=== PATIENT | male | born 1940 | race Caucasian/White ===

== ENCOUNTER 2017-03-15 17:19 | Inpatient (IN) | payer MEDICARE ==
[2017-03-15] MEDS ORDERED: HYDROcodone/Acetaminophen 7.5/325 mg Tablet PO PRN (19:10)
[2017-03-15] MEDS ORDERED: Acetaminophen 325 MG TAB PO PRN (19:12)
[2017-03-15] MEDS ORDERED: Bisacodyl 5 MG TAB PO PRN (19:12)
[2017-03-15] MEDS ORDERED: Ondansetron ODT 4 MG TAB PO PRN (19:12)
[2017-03-15] MEDS ORDERED: Milk Of Magnesia 30 ML UDCUP PO PRN (19:12)
[2017-03-15] MEDS ORDERED: Loperamide HCl 2 MG CAP PO PRN (19:12)
[2017-03-15] MEDS ORDERED: Vancomycin HCl 750 MG in Sodium Chloride 0.9% 250 ML 250 ML IVPB SCH (21:00)
[2017-03-15] MEDS: Guaifenesin DM 100-10/5 ML UDCUP PO PRN (21:17)
[2017-03-15] MEDS: Vancomycin HCl 125 MG Capsule PO SCH (21:17)
[2017-03-15] MEDS: Metoprolol Tartrate 50 MG TAB PO SCH (21:17)
[2017-03-15] MEDS ORDERED: Vancomycin HCl 500 MG in Sodium Chloride 0.9% 100 ML IVPB SCH (22:00)
[2017-03-16 05:24] LABS: #Basophils 0.1 thou/uL (0.0-0.2); #Eosinphils 0.1 thou/uL (0.0-0.7); #Lymphocytes 1.6 thou/uL (1.20-3.40); #Monocytes 1.8 thou/uL (0.11-0.59); #Neutrophils 10.9 thou/uL (1.40-6.50); %Basophils 0.7 % (0.0-1.0); %Eosinophils 0.5 % (0.0-10.0); %Lymphocytes 11.3 % (21.0-51.0); %Monocytes 12.1 % (0.0-10.0); %Neutrophils 75.4 % (42.0-75.0); Hemoglobin 15.3 g/dL (14.0-18.0); Mean Corpuscular HGB CONC 31.4 g/dL (32.0-36.0); Mean Corpuscular Hemoglobin 32.2 pg (27.0-31.0); Mean Platelet Volume 8.4 fL (7.4-10.4); Platelet Count 153 thou/uL (130-400); RBC Distribution Width 14.9 % (11.5-14.5); Red Blood Cell (RBC) Count 4.76 mill/uL (4.70-6.10); White Blood Cell (WBC) Count 14.5 thou/uL (4.8-10.8)
[2017-03-16] MEDS: Levothyroxine Sodium 25 MCG TAB PO SCH (05:24)
[2017-03-16 05:26] LABS: INR-International Normal Ratio 2.9; Prothrombin Time 31.8 SEC (12.0-14.7)
[2017-03-16 05:37] LABS: ALT (SGPT) 304 U/L (8-55); AST (SGOT) 181 U/L (5-34); Alkaline Phosphatase 110 U/L (40-150); Anion Gap 14 mmol/L (10-20); BUN (Urea Nitrogen) 52 mg/dL (8.4-25.7); Bilirubin, Total 2.1 mg/dL (0.2-1.2); Calc. Creatinine Clearance 32 mL/min (70-130); Calcium 8.9 mg/dL (7.8-10.44); Carbon Dioxide 28 mmol/L (23-31); Chloride 98 mmol/L (98-107); Estimated GFR-MDRD 38; Globulin 2.4 g/dL (2.4-3.5); Glucose 87 mg/dL (83-110); Potassium 4.4 mmol/L (3.5-5.1); Protein, Total 5.4 g/dL (5.8-8.1); Sodium 136 mmol/L (136-145)
[2017-03-16] MEDS: Cyanocobalamin (Vitamin B-12) 1,000 MCG TAB PO SCH (08:51)
[2017-03-16] MEDS: Furosemide 20 MG TAB PO SCH (08:51)
[2017-03-16] MEDS: Metoprolol Tartrate 50 MG TAB PO SCH ×2 (08:51→20:00)
[2017-03-16] MEDS: Famotidine 20 MG TAB PO SCH (08:51)
[2017-03-16] MEDS: Folic Acid 1 MG TAB PO SCH (08:51)
[2017-03-16] MEDS: Multivitamin W/ Minerals 1 TAB PO SCH (08:52)
[2017-03-16] MEDS: Saccharomyces boulardii 250 MG CAP PO SCH (08:52)
[2017-03-16] MEDS: Vancomycin HCl 125 MG Capsule PO SCH ×4 (08:53→20:00)
[2017-03-16] MEDS: Guaifenesin DM 100-10/5 ML UDCUP PO PRN (09:00)
--- NOTE | 2017-03-16 12:14 | HP ---
HISTORY OF PRESENT ILLNESS: Mr. Jimenez is a very pleasant 76-year-old white male that was admitted to [facility] with an osteomyelitis of the left index finger. He states he got that from cu tting a brisket and several weeks later became viciously infected. The patient was admitted to the hospital and started on vancomycin IV. He developed Clostridium diff icile and was started on oral vancomycin also. He has been stabilized and was transferred here for p hysical therapy, occupational therapy to increase his strength and his stamina. PAST MEDICAL HISTORY: 1. Congestive heart failure. 2. Chronic atrial fibrillation. 3. Chronic obstructive pulmonary disease. 4. Osteomyelitis of left index finger. 5. Hypothyroidism. 6. Hypertension. 7. Generalized weakness. PAST SURGICAL HISTORY: 1. Reveals the patient has had a revision and debridement of osteomyelitis of the left index finger. 2. Appendectomy. 3. Tonsillectomy 4. Ear and nose surgery. FAMILY HISTORY: Reveals patient has a family history of coronary artery disease. SOCIAL HISTORY: Reveals the patient does not smoke, but he quit smoking many years ago. He used to smoke cigars also. The patient does not use any alcohol or drugs. The patient lives in [place] and has a girlfriend for the last 30 years that lives with him. CURRENT MEDICATIONS: 1. Reveal the patient presently on vancomycin 1.25 grams IV daily. 2. Vancomycin 125 mg orally q.i.d. 3. Elcho 7.5 q.8h. p.r.n. pain. 4. DuoNebs q.6h. scheduled. 5. Aspirin 81 mg daily. 6. Vitamin B12 1000 mcg daily. 7. Pepcid 20 mg daily. 8. Folic acid 1 mg daily. 9. Lasix 20 mg each morning. 10. Robitussin-DM 1 tablespoon q.4h. p.r.n. 11. Theragran M one a day. 12. Levothyroxine 25 mcg daily. 13. Metoprolol 50 mg b.i.d. 14. Protonix 40 mg daily. 15. Florastor 250 mg daily. 16. Coumadin 3 mg each day. ALLERGIES: The patient is noted to be allergic to PENICILLIN. REVIEW OF SYSTEMS: GENERAL: The patient states he is doing very well. He denies any nausea, vomiting, fever or chills. He states he is very weak and that is his understanding why he got transferred to [facility] for physical therapy and occupational therapy. HEENT: The patient denies any ear, nose or throat problems. States his vision is fair. His hearing is fair. He has no significant allergies at this time. CARDIOVASCULAR: The patient denies any palpitations, chest pain, dyspnea on exertion, shortness of b reath or orthopnea. Denies any claudication. RESPIRATORY: Respiratory-renee the patient does admit to some shortness of breath and wheezing. He d enies any hemoptysis. Denies any fever or night sweats. GI: The patient has a very poor appetite, but he states the food here is much better and he will eat better. Denies any nausea, vomiting, diarrhea or constipation. He states his C. diff is much impro nadia and now he has formed stools, but he has to still go anytime he has to urinate. : The patient denies any urgency, frequency, dysuria, nocturia. MUSCULOSKELETAL: The patient states he has extreme weakness and was not able to get up, but today he is able to get up and go to the bathroom on his own. NEURO: The patient states he has no significant anxiety, depression. SKIN: The patient denies any significant rash. PHYSICAL EXAMINATION: VITAL SIGNS: Today reveal blood pressure 104/74, pulse 104 to 109, respirations 20, O2 sat 92-95% on 2 liters, T-max 96.8. GENERAL: This is a well-developed, well-nourished, very thin, small build white male in no apparent distress at this time. HEENT: Reveals normocephalic, nontraumatic cranium. Pupils are equally round and reactive. Extraoc ular movements are intact. Nose and throat are slightly dry. NECK: Supple, without masses, nodes or bruits. No jugular venous distention is noted. LUNGS: Chest is clear to auscultation. No rales, no rhonchi, no wheezes are heard. The patient alberto s have a history of CHF. No rales are heard this morning. HEART: Reveals a regular rate and rhythm without murmurs, gallops or rubs. ABDOMEN: Scaphoid, soft, nontender, without organomegaly, normal bowel sounds are noted. No rebound or guarding is noted. : Deferred. EXTREMITIES: Reveal no clubbing, cyanosis with 1+ edema which is normal for him. NEUROLOGIC: The patient has no hallucinations, he is oriented to person, place, and time. LABORATORY AND X-RAY FINDINGS: Today reveals white count is 14,000, hemoglobin 15.3, hematocrit 48.8 , platelet count is 153,000. Sodium is 136, potassium 4.4, chloride 98, carbon dioxide 28 with a BUN of 52, creatinine 1.74, which is slightly increased. GFR is 38. The patient's INR is 2.9. Liver enzymes reveals his AST is 181, which is increased. His ALT is 304 which is also increased. W e will repeat those tomorrow. ASSESSMENT: 1. Osteomyelitis, left index finger. 2. Clostridium difficile. 3. Generalized weakness. 4. Congestive heart failure with diastolic dysfunction. 5. Chronic atrial fibrillation on Coumadin, which is rate controlled. 6. Hypothyroidism. 7. Chronic obstructive pulmonary disease. PLAN: 1. The patient will continue his same medication. 2. We will start him on aggressive physical therapy and occupational therapy. 3. We will continue his antibiotics I believe until 03/25/2017. 4. The patient is to see Dr. Greenberg in about 2 weeks. 5. The patient has seen Dr. Burr for followup. 6. The patient is I believed to have an x-ray in the future. On the the patient did have an x- ray and was placed on Levaquin.
[2017-03-16 12:30] VITALS: BMI 21.4
[2017-03-16 17:33] LABS: Vancomycin, Trough 25.1 ug/mL
[2017-03-16] MEDS: Warfarin Sodium 3 MG TAB PO SCH (17:36)
[2017-03-16] MEDS ORDERED: Vancomycin HCl 750 MG in Sodium Chloride 0.9% 250 ML 250 ML IVPB SCH (18:00)
[2017-03-16] MEDS ORDERED: VANCOMYCIN IVPB PRN (18:44)
[2017-03-16] MEDS ORDERED: Vancomycin HCl 500 MG in Sodium Chloride 0.9% 100 ML IVPB SCH (19:00)
[2017-03-17] MEDS: Levothyroxine Sodium 25 MCG TAB PO SCH (05:30)
--- NOTE | 2017-03-17 07:07 | PRG ---
DATE OF SERVICE: 03/17/2017 HISTORY OF PRESENT ILLNESS: Mr. Jimenez is a very pleasant 76-year-old white male that initially was admitted to [facility] with osteomyelitis of left finger. He states that that got infected and he was admitted with IV antibiotics of vancomycin. He also developed some C. diff while he was there. He is on oral vancomycin. He eventually stabilized and transferred here for physical therapy , occupational therapy to increase his strength and stamina, but also to finish out his antibiotics. SUBJECTIVE: The patient states he feels well today. He has no complaints. He has no nausea he has no vomiting, has no abdominal pain. The patient's liver enzymes were going up yesterday. We did reevaluate that and looked at the past a nd so his AST was 181 on the , back at [place], it was 117 on the , on 03/08/2017 it was 32. The patient's ALT yesterday was 304, on 03/13/2017 it was 137, on 03/08/2017 it was 29. We reviewed the medications. The patient has gotten some Tylenol and some [place], but not an excessive amount. W e will stop both of these at this time, repeat his liver enzymes today and do a hepatitis screen on h im: VITAL SIGNS: Today reveal blood pressure 96/59. His beta mark was held last night. Pulse 92, re spirations 20, O2 sat 92% on 2 liters. T-max is 97.8. PHYSICAL EXAMINATION: GENERAL: This is a well-developed, very thin white male in no apparent distress at this time. HEENT: Reveals normocephalic, nontraumatic cranium. Pupils are equally round, reactive. Extraocula r movements intact. The patient's sclerae are white. There not jaundiced or icteric. NECK: Supple, without masses, nodes or bruits. CHEST: Clear to auscultation. No rales, rhonchi, wheezes or cough is heard. CARDIOVASCULAR: Reveals a regular rate and rhythm without murmurs, gallops or rubs. The patient is noted to be in atrial fibrillation and rate controlled. ABDOMEN: Soft, scaphoid, nontender. No organomegaly is noted. The patient has no liver tenderness in the right upper quadrant. Normal bowel sounds are noted. The patient states his stools are back to normal. No rebound or guarding is noted. : Deferred. EXTREMITIES: Reveal no clubbing, cyanosis with 1+ edema. NEUROLOGIC: The patient is oriented to person, place, time, he has no hallucinations or delusions. LABORATORY: Lab this morning is pending. INR yesterday was 2.9. IMPRESSION: 1. Osteomyelitis, left index finger, presently on vancomycin IV. 2. Clostridium difficile presently on vancomycin orally. 3. Generalized weakness. 4. Congestive heart failure with diastolic dysfunction. 5. Chronic atrial fibrillation on Coumadin, which is rate controlled. 6. Hypothyroidism. 7. Chronic obstructive pulmonary disease. 8. Elevated liver enzymes. 9. Generalized weakness. PLAN: 1. Will stop the patient's Tylenol and his [place]. 2. Continue physical therapy and occupational therapy. 3. Continue his present antibiotics. 4. See Dr. Greenberg in 2 weeks. 5. Follow up with Dr. Leno segura 6. Monitor the patient's liver enzymes with a comp met today and tomorrow.
[2017-03-17 07:45] LABS: Anion Gap 13 mmol/L (10-20)
[2017-03-17 08:11] LABS: ALT (SGPT) 239 U/L (8-55); AST (SGOT) 128 U/L (5-34); Albumin 2.8 g/dL (3.4-4.8); Alkaline Phosphatase 121 U/L (40-150); BUN (Urea Nitrogen) 46 mg/dL (8.4-25.7); Bilirubin, Total 1.7 mg/dL (0.2-1.2); Calc. Creatinine Clearance 37 mL/min (70-130); Calcium 8.4 mg/dL (7.8-10.44); Carbon Dioxide 28 mmol/L (23-31); Chloride 100 mmol/L (98-107); Estimated GFR-MDRD 46; Glucose 105 mg/dL (83-110); Potassium 3.7 mmol/L (3.5-5.1); Protein, Total 4.9 g/dL (5.8-8.1); Sodium 137 mmol/L (136-145)
[2017-03-17 08:13] LABS: Globulin 1.8 g/dL (2.4-3.5)
[2017-03-17] MEDS: Saccharomyces boulardii 250 MG CAP PO SCH (09:16)
[2017-03-17] MEDS: Multivitamin W/ Minerals 1 TAB PO SCH (09:16)
[2017-03-17] MEDS: Metoprolol Tartrate 50 MG TAB PO SCH ×2 (09:16→20:33)
[2017-03-17] MEDS: Furosemide 20 MG TAB PO SCH (09:16)
[2017-03-17] MEDS: Famotidine 20 MG TAB PO SCH (09:16)
[2017-03-17] MEDS: Cyanocobalamin (Vitamin B-12) 1,000 MCG TAB PO SCH (09:16)
[2017-03-17] MEDS: Folic Acid 1 MG TAB PO SCH (09:16)
[2017-03-17] MEDS: Vancomycin HCl 125 MG Capsule PO SCH ×4 (09:17→20:33)
[2017-03-17] MEDS: Warfarin Sodium 3 MG TAB PO SCH (17:12)
[2017-03-17] MEDS: Vancomycin HCl 1 GM in Sodium Chloride 0.9% 250 ML 250 ML IVPB SCH (17:13)
[2017-03-17 18:04] LABS: HBCM Index 0.13 S/CO (0-0.79); Hep A IgM AB Non-Reactive (NonReactive); Hep A IgM S/CO 0.14 S/CO (0-0.79); Hep B Surf Ag Non-Reactive S/CO (NonReactive); Hep C IgG Ab Non-Reactive (NonReactive); Hepatitis B Core IGM Abs Non-Reactive (NonReactive)
[2017-03-17] MEDS: Melatonin 3 MG TAB PO SCH (20:44)
[2017-03-17] MEDS ORDERED: Nystatin Powder 15 GM BOT TOP PRN (20:51)
[2017-03-17] MEDS: Guaifenesin DM 100-10/5 ML UDCUP PO PRN (23:19)
[2017-03-17] MEDS: Nystatin 500,000 UNITS/5 ML UDCUP SSW SCH (23:19)
[2017-03-17] MEDS: Nystatin Powder 15 GM BOT TOP SCH (23:20)
[2017-03-18 05:19] LABS: Prothrombin Time 23.6 SEC (12.0-14.7)
[2017-03-18 05:24] LABS: Band 4 % (5-11); Eosinophils 2 % (0-10); Hemoglobin 15.5 g/dL (14.0-18.0); Lymphocytes 16 % (21-51); MDiff Complete? YES; Mean Corpuscular HGB CONC 32.3 g/dL (32.0-36.0); Mean Corpuscular Hemoglobin 33.3 pg (27.0-31.0); Mean Platelet Volume 7.9 fL (7.4-10.4); Monocytes 9 % (0-10); Neutrophil 69 % (42-75); PLT Morphology Comment Appears Adequate; Platelet Count 115 thou/uL (130-400); RBC Distribution Width 14.7 % (11.5-14.5); RBC Morphology Normal; Red Blood Cell (RBC) Count 4.65 mill/uL (4.70-6.10); White Blood Cell (WBC) Count 12.8 thou/uL (4.8-10.8)
[2017-03-18] MEDS: Levothyroxine Sodium 25 MCG TAB PO SCH (05:27)
[2017-03-18 05:29] LABS: ALT (SGPT) 228 U/L (8-55); AST (SGOT) 124 U/L (5-34); Albumin 3.2 g/dL (3.4-4.8); Alkaline Phosphatase 138 U/L (40-150); Anion Gap 15 mmol/L (10-20); BUN (Urea Nitrogen) 38 mg/dL (8.4-25.7); Bilirubin, Total 2.2 mg/dL (0.2-1.2); Calc. Creatinine Clearance 39 mL/min (70-130); Calcium 8.7 mg/dL (7.8-10.44); Carbon Dioxide 28 mmol/L (23-31); Chloride 99 mmol/L (98-107); Estimated GFR-MDRD 49; Globulin 2.6 g/dL (2.4-3.5); Glucose 67 mg/dL (83-110); Protein, Total 5.8 g/dL (5.8-8.1); Sodium 138 mmol/L (136-145)
[2017-03-18] MEDS: Famotidine 20 MG TAB PO SCH (09:03)
[2017-03-18] MEDS: Multivitamin W/ Minerals 1 TAB PO SCH (09:03)
[2017-03-18] MEDS: Metoprolol Tartrate 50 MG TAB PO SCH ×2 (09:03→19:52)
[2017-03-18] MEDS: Cyanocobalamin (Vitamin B-12) 1,000 MCG TAB PO SCH (09:03)
[2017-03-18] MEDS: Furosemide 20 MG TAB PO SCH (09:04)
[2017-03-18] MEDS: Fluconazole 100 MG TAB PO SCH (09:04)
[2017-03-18] MEDS: Folic Acid 1 MG TAB PO SCH (09:04)
[2017-03-18] MEDS: Saccharomyces boulardii 250 MG CAP PO SCH (09:04)
[2017-03-18] MEDS: Vancomycin HCl 125 MG Capsule PO SCH ×4 (09:04→19:52)
[2017-03-18] MEDS: Nystatin 500,000 UNITS/5 ML UDCUP SSW SCH ×3 (09:05→19:52)
--- NOTE | 2017-03-18 10:01 | PRG ---
DATE OF SERVICE: 03/18/2017 HISTORY OF PRESENT ILLNESS: Mr. Jimenez is a very pleasant 76-year-old white male. He initially pushpa t to [place] and was found to have an osteomyelitis of the left index finger. It was infected, he was admitted for IV antibiotics, but he also developed Clostridium difficile. He was started on ora l vancomycin and eventually transferred here for physical therapy, occupational therapy to increase h is strength and stamina. He is also here to help finish out his antibiotics. SUBJECTIVE: The patient states he feels tired today because his did not sleep very well last night, but otherwise he has no complaints. He states his stools are occasionally loose slightly, but formed . He has no complaints. He states he is eating well. VITAL SIGNS: Blood pressure 106/72, pulse 114 to 115, respirations 16-18, O2 sat 94% on room air, T- max 97.7. LABORATORY DATA: Today reveal a white count has decreased down to 12,800 with a hemoglobin 15.5, hem atocrit 47.9, platelet count of 115. INR on the was 2.9. INR today is 2.0. Sodium is 138, potassium 4.0, chloride 99, carbon dioxide 25 with a BUN of 38, creatinine 1.41, GFR i ncreased to 49. AST has gone from 181 to 128 to 124 today; ALT has gone from 304 to 239 to 228 today. His hepatitis A, B antigen, B core and C are all nonreactive. PHYSICAL EXAMINATION: GENERAL: This is a well-developed, very thin white male in no apparent distress at this time. HEENT: Reveals normocephalic, nontraumatic cranium. Pupils are equally round and reactive. Extraoc ular movements intact. Nose and throat are slightly dry, but clear. Sclerae are nonicteric. NECK: Supple, without masses, nodes or bruits. LUNGS: Chest is clear to auscultation. No rales, no rhonchi, no wheezes or cough is heard. CARDIOVASCULAR: Reveals a regular rate and rhythm. At this time he has been chronic atrial fibrilla tion and he is rate controlled. ABDOMEN: Soft, nontender, without organomegaly, normal bowel sounds are noted. No liver tenderness is noted. The patient not jaundiced or icteric looking. Normal bowel sounds are in all 4 quadrants. GENITOURINARY: Deferred. EXTREMITIES: No clubbing, cyanosis or edema. NEUROLOGIC: The patient is oriented to person, place, and time. IMPRESSION: 1. Osteomyelitis, left index finger presently on vancomycin IV. 2. Clostridium difficile presently on vancomycin orally. 3. Generalized weakness. 4. Congestive heart failure with diastolic dysfunction. 5. Chronic atrial fibrillation on Coumadin, which is rate controlled. 6. Hypothyroidism. 7. Chronic obstructive pulmonary disease. 8. Elevated liver enzymes, unknown etiology. PLAN: 1. We did stop the patient's Tylenol and Kennedy. 2. Continue PT and OT. 3. Continue present antibiotics. 4. Continue stress ulcer prophylaxis. 5. Continue decubitus precautions. 6. Continue physical therapy and occupational therapy.
[2017-03-18] MEDS: Nystatin Powder 15 GM BOT TOP SCH ×2 (13:02→19:55)
[2017-03-18] MEDS: Vancomycin HCl 1 GM in Sodium Chloride 0.9% 250 ML 250 ML IVPB SCH (17:55)
[2017-03-18] MEDS: Warfarin Sodium 3 MG TAB PO SCH (18:01)
[2017-03-18] MEDS: Melatonin 3 MG TAB PO SCH (19:51)
[2017-03-19 05:21] LABS: INR-International Normal Ratio 2.4; Prothrombin Time 27.2 SEC (12.0-14.7)
[2017-03-19] MEDS: Levothyroxine Sodium 25 MCG TAB PO SCH (05:38)
[2017-03-19 08:19] VITALS: TEMP 97.8
[2017-03-19] MEDS: Saccharomyces boulardii 250 MG CAP PO SCH (09:08)
[2017-03-19] MEDS: Nystatin 500,000 UNITS/5 ML UDCUP SSW SCH (09:08)
[2017-03-19] MEDS: Multivitamin W/ Minerals 1 TAB PO SCH (09:09)
[2017-03-19] MEDS: Fluconazole 100 MG TAB PO SCH (09:09)
[2017-03-19] MEDS: Famotidine 20 MG TAB PO SCH (09:09)
[2017-03-19] MEDS: Vancomycin HCl 125 MG Capsule PO SCH (09:09)
[2017-03-19] MEDS: Metoprolol Tartrate 50 MG TAB PO SCH (09:09)
[2017-03-19] MEDS: Folic Acid 1 MG TAB PO SCH (09:09)
[2017-03-19] MEDS: Furosemide 20 MG TAB PO SCH (09:09)
[2017-03-19] MEDS: Cyanocobalamin (Vitamin B-12) 1,000 MCG TAB PO SCH (09:09)
[2017-03-19] MEDS: Nystatin Powder 15 GM BOT TOP SCH (09:12)
[2017-03-19 12:57] VITALS: BP 110/74
--- NOTE | 2017-03-19 21:36 | DIS ---
HISTORY OF PRESENT ILLNESS: Mr. Jimenez was admitted and transferred to [facility] in [place], [place], for continued IV vancomycin. He is noted to be Clostridium difficile positive and is con tinued on his oral vancomycin and his IV vancomycin. The patient has been accepted in a long-term in [place] and he is ready for discharge at this time. DISCHARGE MEDICATIONS: Include the followin. Aspirin 81 mg a day. 2. Dulcolax tablets p.r.n. 3. Vitamin B12 at 1000 mcg daily. 4. Pepcid 20 mg daily. 5. Fluconazole 100 mg daily for 4 more days. 6. Folic acid 1 mg daily. 7. Lasix 20 mg daily. 8. Robitussin-DM 15 mL q.4 hours p.r.n. cough. 9. DuoNebs q.6 hours. per RT. 10. Levothyroxine 25 mcg a day. 11. Imodium 2 mg p.r.n. diarrhea. 12. Milk of magnesia p.r.n. constipation. 13. Melatonin 6 mg p.r.n. insomnia. 14. Metoprolol tartrate 50 mg b.i.d. 15. Multivitamin with minerals 1 a day. 16. Nystatin powder topically twice a day. 17. Zofran 4 mg q.6 hours. p.r.n. nausea and vomiting. 18. Protonix 40 mg daily. 19. Florastor 250 mg daily. 20. Vancomycin 125 mg 4 times a day for 21 days, I believe the last day is 03/25/2017, but that woul d need to be checked and verified. 21. Coumadin 3 mg daily. 22. Vancomycin 1 gram IV daily at 1800 hours. 23. Stanton 7.5 one tab q.8 hours p.r.n. severe pain. HISTORY: This is a pleasant 76-year-old white male who admitted to [facility] with osteomyelitis in the left index finger that he got from cutting brisket. The patient was started on IV vancomycin, de veloped Clostridium difficile and was started on oral vancomycin and he also had a urinary tract infe ction started on Levaquin. The patient was transferred to [facility] on 03/15/2017 now he is being discharged, w [facility] is 03/19/2017. He is being transferred to [facility] where he continued with his IV antibiotics and his oral antibiotics. His family is ready for him to be discharged and the o rders were written. While in the hospital, the patient's liver enzymes were noted to be a little bit elevated. They are certainly on the decline. His white count yesterday was 12,800, his hemoglobin 15.5, hematocrit 47.9 , platelet count 115,000. His INR yesterday was 2.0, this morning it was 2.4. His sodium was 138, potassium 4.0, chloride 99, carbon dioxide 28 with a BUN of 38, creatinine 1.41. His glucose was 67. His AST is down, it was 181 now it is down to 124. His ALT is also decreased i t was 304 and now is 228. It has been on the decline. That continues to need to be followed. Last vancomycin levels on the was 25, it is being adjusted by pharmacy. His hepatitis titers A, B, an d C were all nonreactive. The patient has actually been doing very well and is ready for discharge and wants to go to [place], so it is closer to his home. PHYSICAL EXAMINATION: GENERAL: Reveals a well-developed, well-nourished, very thin white male in no apparent distress at t his time. HEENT: Reveals normocephalic, nontraumatic cranium. Pupils are equally round and reactive. Extraoc ular movements intact. Nose and throat are slightly dry, but clear. Sclerae nonicteric. NECK: Supple, without masses, nodes or bruits. CHEST: Clear to auscultation, no rales, rhonchi, wheezes, or cough is heard. HEART: Reveals an irregularly irregular rate and rhythm, which is rate controlled. ABDOMEN: Soft, scaphoid, nontender, without organomegaly, normal bowel sounds are noted. No rebound or guarding is noted. No liver tenderness is noted. GENITOURINARY: Deferred. EXTREMITIES: No clubbing, cyanosis or edema. NEUROLOGIC: The patient oriented to person, place, and time. IMPRESSION: 1. Osteomyelitis, left index finger. Continued on vancomycin until around 03/25 that needs to be ve rified with Dr. Burr' office. 2. Clostridium difficile, presently on vancomycin orally. 3. Generalized weakness. 4. Increased liver enzymes, which are trending down. 5. Congestive heart failure with diastolic dysfunction. 6. Chronic atrial fibrillation on Coumadin, this morning it was 2.4. His rate controlled. 7. Hypothyroidism. 8. Chronic obstructive pulmonary disease. 9. Elevated liver enzymes. PLAN: 1. The patient did have his Tylenol and Stanton stopped. 2. Continue physical therapy and occupational therapy. 3. Continue present antibiotics. 4. Continue for pharmacy to monitor his vancomycin level and doses. 5. Continue stress ulcer prophylaxis. 6. Continue decubitus precautions. 7. Continue physical therapy and occupational therapy. 8. Discharge to [facility].
== END 2017-03-19 11:30 | DRG 948 ==
LOC: NAV ACUTE 17:19
PROVIDERS: ADMIT Family Medicine; ATTEND Family Medicine
DX: R53.1 Weakness (principal); A04.72 Enterocolitis due to Clostridium difficile, not specified as recurrent; I11.0 Hypertensive heart disease with heart failure; I50.32 Chronic diastolic (congestive) heart failure; M86.8X4 Other osteomyelitis, hand; N39.0 Urinary tract infection, site not specified; I48.2 Chronic atrial fibrillation; J44.9 Chronic obstructive pulmonary disease, unspecified; Z79.01 Long term (current) use of anticoagulants; E03.9 Hypothyroidism, unspecified; Z87.891 Personal history of nicotine dependence
CPT/HCPCS: 36415; 80053; 80074; 80202; 83880; 85025; 85610; 85652; 86140; 94640; A4216; G8978-GP-CJ; G8979-GP-CI; G8996-GN-CI; G8997-GN-CH; G8997-GN-CI; J3370; J7050; J7620

== ENCOUNTER 2017-04-30 18:00 | Inpatient (IN) | payer MEDICARE ==
[2017-04-30] MEDS ORDERED: Milk Of Magnesia 30 ML UDCUP PO PRN (19:52)
[2017-04-30] MEDS ORDERED: Ondansetron ODT 4 MG TAB PO PRN (19:52)
[2017-04-30] MEDS ORDERED: HYDROcodone/Acetaminophen 7.5/325 mg Tablet PO PRN (19:52)
[2017-04-30] MEDS ORDERED: Bisacodyl 5 MG TAB PO PRN (19:52)
[2017-04-30] MEDS: guaiFENesin ER 600 MG TAB PO SCH (21:02)
[2017-04-30] MEDS: Vancomycin HCl 125 MG Capsule PO SCH (21:02)
[2017-04-30] MEDS: Cephalexin 500 MG CAP PO SCH (21:02)
[2017-04-30] MEDS: Metoprolol Tartrate 50 MG TAB PO SCH (21:03)
[2017-04-30] MEDS: Melatonin 3 MG TAB PO SCH (21:03)
--- NOTE | 2017-05-01 01:18 | HP ---
DATE OF ADMISSION: 04/30/2017 HISTORY OF PRESENT ILLNESS: The patient is a very pleasant 77-year-old white male, who was admitted to [facility] on the 04/25 for cellulitis of his right lower leg. He has had multiple comorbidi ties including recurrent Clostridium difficile, diarrhea being treated with his second round of oral vancomycin with resolution at [facility] with no further diarrhea. He also has a history of sanjana stolic congestive heart failure and atrial fibrillation and echo revealing biatrial enlargement and p ulmonary hypertension, who has been having difficulty with his anticoagulation at home, but has been stable with INR of 2.5 on discharge from [facility]. He also has a history of COPD, although he never smoked with a chronic cough, sputum production, and was treated prior to the admission to [facility] on Anoro inhaler once daily. He also was on Symbicort 160/4.5 twice daily and was on fur osemide 40 mg daily, and Lopressor 50 mg daily; however, at [facility], he did have some signifi cant increase in his edema most likely due to IV fluids and antibiotics and required IV Lasix and sub sequently switched to oral Lasix 40 twice daily on transferred to [facility]. At present, he is comfortable at rest with no dyspnea or chest pain or shortness of breath, but states he is very we ak and is ready to do therapy and does not wish to go home until he is stronger as he has had multipl e admissions in the last several years for pneumonia and for recurrent diarrhea and does not wish to have it occur again. As mentioned above, he does have longstanding atrial fibrillation, but he has h ad no history of embolic phenomenon, was found to have a significant elevation of his BNP to 637 on a dmission at [facility], but has stable chronic kidney disease stage 2 with no real significance. SOCIAL HISTORY: He lives with his for many years. He is a distant smoker. He is a distant hea vy alcohol abuser, but none recently. He still works part-time at a restaurant. FAMILY MEDICAL HISTORY: Positive for hypertension and diabetes. He has a history of allergy to PENI CILLIN, but has tolerated Rocephin and Keflex in the past. MEDICATIONS: Medications on transfer here now from [facility] include Tylenol 500 as needed, molina dheld nebulizer with albuterol 4 times daily, aspirin 81 daily, folic acid 1 mg daily, furosemide 40 mg twice daily, levothyroxine 25 mcg daily, melatonin 10 mg at night, metoprolol 50 mg daily, Protoni x 40 daily, tamsulosin 0.4 mg nightly, and the above-mentioned Anoro inhaler 1 puff daily, warfarin 5 mg daily, and recently started on Keflex 500 four times daily for 10 days, and continued on vancomyc in 125 mg 4 times daily until 05/23. REVIEW OF SYSTEMS: HEENT: Denies any headaches, dizziness, change in vision or hearing, hoarseness or dysphagia. Pulmonary: Denies cough, sputum production. He does have a history of pneumonia last year, but none recently. Has no pleurisy now, but has had in the past. He has no orthopnea, paroxy smal nocturnal dyspnea. He does have significant increase in edema during this hospitalization. Gas trointestinal: He has had some heartburn, but no vomiting and nausea. He did have some diarrhea as mentioned above, secondary to Clostridium difficile, but this has resolved on vancomycin with normal stools. Genitourinary: He has mild decreased stream and benign prostatic hypertrophy symptoms contr olled with tamsulosin with no dysuria, hematuria. Musculoskeletal: He has some soreness and stiffne ss in his knees and back, mainly related to his cellulitis, which he states was related to a scratch from his dog. PHYSICAL EXAMINATION: GENERAL: Patient is an elderly white male lying in bed, in no acute distress, oriented x3 and jenny ative. VITAL SIGNS: Show temperature of 96.8, pulse 86 and irregular, respirations 16, O2 sats 94%, blood p ressure 119/64. HEENT: Pupils are equal, round, and react to light and accommodation. Sclerae are anicteric, Conjun ctivae pale. Oral mucous membranes well hydrated. NECK: Supple. There are no nodes or masses. JVP is not elevated. LUNGS: Show a few crackles in the bases. CARDIAC: Shows an irregularly irregular rhythm. PMI in the fifth intercostal space midclavicular li ne. ABDOMEN: Soft, nontender with no masses or organomegaly. SKIN/EXTREMITIES: Show 2+ edema to the knees bilaterally and also somewhat of the hands and the both legs were wrapped. There is some erythema and mild tenderness in the right leg. NEUROLOGICAL: Intact. LABORATORY: Pending. Previous labs from recent hospitalization shown to have PT/INR of 2.5. Blood cultures negative x2, stool for Clostridium difficile is positive for the antigen and toxin, magnesiu m 1.9, glucose 110, BUN 21, creatinine 1.17. Sodium 137, potassium 4.5, chloride 99, bicarb 31, GFR of 59. White count 7200, hematocrit 37, hemoglobin 12. Wound culture did show Klebsiella sensitivit ies unknown. ASSESSMENT: An elderly white male with a long history of atrial fibrillation and diastolic heart carl lure with recent exacerbation secondary to admission for cellulitis, which occurred after scratched b y his dog. He has responded to oral antibiotics, but did develop recurrent Clostridium difficile col itis, which is now responding to oral vancomycin. He will continue vancomycin until 05/23 as he has normal stool at this time, but still has positive stool for Clostridium difficile toxin. He will be continued now on oral Keflex as he is responding to IV Rocephin well and we will monitor closely and continued on Keflex for a total of 10 days. He will be diuresed continually with oral Lasix and incr eased dose of 40 twice daily, compared to his previous dose of 40 daily. We will monitor his renal f unction and cardiac function. He will be started on PT, OT. He will have his warfarin continue to 5 mg daily and we will have daily prothrombin time.
[2017-05-01 05:27] LABS: INR-International Normal Ratio 1.7; Prothrombin Time 20.8 SEC (12.0-14.7)
[2017-05-01 05:35] LABS: Eosinophils 2 % (0-10); Hemoglobin 11.8 g/dL (14.0-18.0); Lymphocytes 17 % (21-51); MDiff Complete? YES; Mean Corpuscular HGB CONC 31.3 g/dL (32.0-36.0); Mean Corpuscular Hemoglobin 30.3 pg (27.0-31.0); Mean Platelet Volume 7.6 fL (7.4-10.4); Monocytes 11 % (0-10); Neutrophil 70 % (42-75); PLT Morphology Comment Appears Adequate; Platelet Count 187 thou/uL (130-400); RBC Distribution Width 15.1 % (11.5-14.5); RBC Morphology Normal; Red Blood Cell (RBC) Count 3.88 mill/uL (4.70-6.10); White Blood Cell (WBC) Count 6.9 thou/uL (4.8-10.8)
[2017-05-01] MEDS: Levothyroxine Sodium 25 MCG TAB PO SCH (05:39)
[2017-05-01] MEDS: Budesonide 0.5 MG/2 ML NEB NEB SCH ×2 (05:39→18:24)
[2017-05-01 05:40] LABS: ALT (SGPT) 24 U/L (8-55); AST (SGOT) 31 U/L (5-34); Albumin 2.6 g/dL (3.4-4.8); Alkaline Phosphatase 149 U/L (40-150); Anion Gap 11 mmol/L (10-20); BUN (Urea Nitrogen) 30 mg/dL (8.4-25.7); Bilirubin, Total 0.7 mg/dL (0.2-1.2); Calc. Creatinine Clearance 51 mL/min (70-130); Calcium 9.1 mg/dL (7.8-10.44); Carbon Dioxide 32 mmol/L (23-31); Chloride 98 mmol/L (98-107); Estimated GFR-MDRD 63; Globulin 2.4 g/dL (2.4-3.5); Glucose 101 mg/dL (83-110); Sodium 137 mmol/L (136-145)
[2017-05-01] MEDS ORDERED: Non-Formulary Item 1 EACH (Umeclidinium/Vilanterol [Anoro Ellipta 62.5/25 Mcg Inh] 1 PUFF IH SCH (07:00)
[2017-05-01] MEDS: Cephalexin 500 MG CAP PO SCH ×2 (08:43→20:40)
[2017-05-01] MEDS: Furosemide 40 MG TAB PO SCH ×2 (08:43→13:16)
[2017-05-01] MEDS: Metoprolol Tartrate 50 MG TAB PO SCH ×2 (08:43→20:40)
[2017-05-01] MEDS: Folic Acid 1 MG TAB PO SCH (08:43)
[2017-05-01] MEDS: guaiFENesin ER 600 MG TAB PO SCH ×2 (08:43→20:40)
[2017-05-01] MEDS: Cyanocobalamin (Vitamin B-12) 1,000 MCG TAB PO SCH (08:43)
[2017-05-01] MEDS: Tamsulosin HCl 0.4 MG CAP PO SCH (08:44)
[2017-05-01] MEDS: Vancomycin HCl 125 MG Capsule PO SCH ×4 (08:44→20:39)
[2017-05-01] MEDS ORDERED: Warfarin Sodium 2 MG TAB PO SCH (18:30)
[2017-05-01] MEDS: Melatonin 3 MG TAB PO SCH (20:39)
--- NOTE | 2017-05-01 20:59 | PRG ---
DATE OF SERVICE: 05/01/2017 SUBJECTIVE: The patient feels much better, increased strength, no shortness of breath, no weakness, decreasing edema in the legs and no tenderness in his legs. OBJECTIVE: VITAL SIGNS: Showed blood pressure is low, but improved from yesterday was 97/63, O2 saturations 97% , respirations 20, pulse 94, and afebrile. LUNGS: Clear. CARDIAC EXAMINATION: Shows irregularly irregular rhythm. SKIN AND EXTREMITIES: Show persistent, but decreased edema to the knees and decreasing erythema and tenderness to the right calf. LABORATORY DATA: White count 6900, hematocrit 37, hemoglobin 11. PT is 20.8, INR 1.7 on warfarin 5 mg daily, but possibly missed yesterday's dose. Sodium is 137, potassium 4.0, chloride 98, bicarbona te 32, BUN 30, creatinine 1.13, albumin 2.6, total protein 5.0, AST 31, and ALT 24. ASSESSMENT: 1. Resolving cellulitis of the right leg on Keflex. 2. Stable atrial fibrillation with rate control and anticoagulation on warfarin 5 daily with an adeq uate anticoagulation, but we will repeat tomorrow. 3. Clostridium difficile colitis, resolving on vancomycin for extended course because of recurrence. 4. Hypertension, controlled to goal. 5. Benign prostatic hypertrophy, stable. 6. Chronic obstructive pulmonary disease, stable. PLAN: 1. Continue Lasix 40 mg p.o. b.i.d. for one more day. Repeat BMP, BNP in the a.m. 2. Continue warfarin 5 mg daily and repeat PT/INR in the a.m. 3. Continue Keflex and monitor cellulitis of the right leg. 4. Continue tamsulosin, treatment of BPH.
[2017-05-02 05:43] LABS: INR-International Normal Ratio 1.5; Prothrombin Time 18.5 SEC (12.0-14.7)
[2017-05-02 05:54] LABS: Anion Gap 12 mmol/L (10-20); BUN (Urea Nitrogen) 27 mg/dL (8.4-25.7); Calc. Creatinine Clearance 52 mL/min (70-130); Carbon Dioxide 33 mmol/L (23-31); Chloride 97 mmol/L (98-107); Estimated GFR-MDRD 64; Glucose 100 mg/dL (83-110); Potassium 3.9 mmol/L (3.5-5.1); Sodium 138 mmol/L (136-145)
[2017-05-02] MEDS: Budesonide 0.5 MG/2 ML NEB NEB SCH ×2 (06:02→18:52)
[2017-05-02] MEDS: Levothyroxine Sodium 25 MCG TAB PO SCH (06:04)
[2017-05-02] MEDS: Cephalexin 500 MG CAP PO SCH ×2 (08:49→21:38)
[2017-05-02] MEDS: guaiFENesin ER 600 MG TAB PO SCH ×2 (08:50→21:38)
[2017-05-02] MEDS: Metoprolol Tartrate 50 MG TAB PO SCH ×2 (08:50→21:39)
[2017-05-02] MEDS: Cyanocobalamin (Vitamin B-12) 1,000 MCG TAB PO SCH (08:50)
[2017-05-02] MEDS: Furosemide 40 MG TAB PO SCH ×2 (08:50→13:05)
[2017-05-02] MEDS: Folic Acid 1 MG TAB PO SCH (08:50)
[2017-05-02] MEDS: Tamsulosin HCl 0.4 MG CAP PO SCH (08:51)
[2017-05-02] MEDS: Vancomycin HCl 125 MG Capsule PO SCH ×4 (08:51→21:38)
[2017-05-02] MEDS ORDERED: Warfarin Sodium 2 MG TAB PO SCH (17:00)
[2017-05-02] MEDS: Warfarin Sodium 5 MG TAB PO SCH (17:35)
--- NOTE | 2017-05-02 19:36 | PRG ---
DATE OF SERVICE: 05/02/2017 SUBJECTIVE: The patient is sitting up in the chair, visiting with family, has occasional cough, but no real shortness of breath in the room, still having some significant swelling in both legs, having increased strength and appetite. OBJECTIVE: VITAL SIGNS: Blood pressure is 85/56, O2 sats 94%, respirations 18, pulse 90, temperature 97.6. LUNGS: Show decreased breath sounds in the bases. CARDIAC: Showed irregularly irregular rhythm. ABDOMEN: Soft, nontender. SKIN AND EXTREMITIES: Show persistent 2+ edema both lower legs, right greater than left. LABORATORY DATA: Shows BNP is 589. Sodium 138, potassium 3.9, chloride 97, bicarbonate 33, BUN 27, creatinine 1.11. ASSESSMENT: 1. Stable atrial fibrillation with decreased INR today, on 5 mg warfarin and we will increase to 6 m g of warfarin daily. 2. Cellulitis, right leg, improving on Keflex, to continue. 3. Clostridium difficile colitis, resolving on oral vancomycin with no recurrence. 4. Stable benign prostatic hypertrophy, on tamsulosin. PLAN: 1. Continue Lasix 40 twice daily. Monitor blood pressure. Repeat BMP in the a.m. 2. Increase warfarin 6 mg daily and repeat daily PT/INR. 3. Continue Keflex for cellulitis, right leg. 4. Continue oral vancomycin for Clostridium difficile colitis. 5. Continue tamsulosin and monitor benign prostatic hypertrophy.
[2017-05-02] MEDS: Melatonin 3 MG TAB PO SCH (21:39)
[2017-05-03 05:28] LABS: INR-International Normal Ratio 1.6; Prothrombin Time 19.9 SEC (12.0-14.7)
[2017-05-03] MEDS: Levothyroxine Sodium 25 MCG TAB PO SCH (05:33)
[2017-05-03] MEDS: Budesonide 0.5 MG/2 ML NEB NEB SCH ×2 (05:34→17:58)
[2017-05-03 05:35] LABS: Anion Gap 12 mmol/L (10-20); BUN (Urea Nitrogen) 27 mg/dL (8.4-25.7); Calc. Creatinine Clearance 56 mL/min (70-130); Calcium 8.5 mg/dL (7.8-10.44); Carbon Dioxide 32 mmol/L (23-31); Chloride 97 mmol/L (98-107); Estimated GFR-MDRD 70; Glucose 97 mg/dL (83-110); Potassium 3.7 mmol/L (3.5-5.1); Sodium 137 mmol/L (136-145)
[2017-05-03] MEDS: Furosemide 40 MG TAB PO SCH ×2 (08:32→13:52)
[2017-05-03] MEDS: guaiFENesin ER 600 MG TAB PO SCH ×2 (08:32→21:08)
[2017-05-03] MEDS: Tamsulosin HCl 0.4 MG CAP PO SCH (08:32)
[2017-05-03] MEDS: Vancomycin HCl 125 MG Capsule PO SCH ×4 (08:32→21:08)
[2017-05-03] MEDS: Cephalexin 500 MG CAP PO SCH ×2 (08:33→21:08)
[2017-05-03] MEDS: Cyanocobalamin (Vitamin B-12) 1,000 MCG TAB PO SCH (08:33)
[2017-05-03] MEDS: Metoprolol Tartrate 50 MG TAB PO SCH ×2 (08:33→21:08)
[2017-05-03] MEDS: Folic Acid 1 MG TAB PO SCH (08:33)
[2017-05-03] MEDS: Warfarin Sodium 5 MG TAB PO SCH (17:18)
--- NOTE | 2017-05-03 17:44 | PRG ---
MEDICAL PROGRESS NOTE DATE OF SERVICE: 05/03/2017 SUBJECTIVE: The patient feels well, sitting up in the chair today and taking with family. He states he is ready for therapy, slept well through the night. No shortness of breath or cough. OBJECTIVE: VITAL SIGNS: Shows his blood pressure is low at 89/53. No dizziness or symptoms with it. O2 sat is 95% on room air, pulse is 99 and respirations 21. Afebrile. LUNGS: Showed a few decreased breath sounds in bases. CARDIOVASCULAR: Examination reveals irregularly irregular rhythm. ABDOMEN: Soft and nontender. SKIN AND EXTREMITIES: Show 2+ edema. LABORATORY DATA: Do show PT/INR still subtherapeutic at 19.1 and 1.6 having increased warfarin 6 mg daily, and will monitor. ASSESSMENT: 1. Atrial fibrillation with rate control, on anticoagulation, slowly titrating warfarin, subtherapeu tic anticoagulation. 2. Cellulitis of the right leg, improving, on Keflex. 3. Clostridium difficile colitis, resolving on oral vancomycin, but now diarrhea. 4. Stable benign prostatic hypertrophy. PLAN: 1. Continue Lasix 40 twice daily, basis met profile still improved with a BUN stable at 27, creatini ne down to 1.03. Sodium 137, potassium 3.7, chloride 97, bicarbonate 22 on the increased dose of Las ix. 2. BMP in the a.m. and BNP in the a.m. Continue furosemide 40 twice daily for at least 1 more day. Continue PT, OT. Check PT/INR in the next day and continue warfarin 6 mg daily.
[2017-05-03] MEDS: Melatonin 3 MG TAB PO SCH (21:08)
[2017-05-04] MEDS: traMADol HCl 50 MG TAB PO PRN ×2 (03:47→13:41)
[2017-05-04] MEDS: Levothyroxine Sodium 25 MCG TAB PO SCH (05:26)
[2017-05-04] MEDS: Budesonide 0.5 MG/2 ML NEB NEB SCH ×2 (05:26→17:46)
[2017-05-04 05:43] LABS: Anion Gap 13 mmol/L (10-20); BUN (Urea Nitrogen) 29 mg/dL (8.4-25.7); Calc. Creatinine Clearance 47 mL/min (70-130); Calcium 8.8 mg/dL (7.8-10.44); Carbon Dioxide 34 mmol/L (23-31); Chloride 98 mmol/L (98-107); Estimated GFR-MDRD 57; Glucose 81 mg/dL (83-110); INR-International Normal Ratio 1.6; Potassium 3.9 mmol/L (3.5-5.1); Prothrombin Time 19.5 SEC (12.0-14.7); Sodium 141 mmol/L (136-145)
[2017-05-04] MEDS: Tamsulosin HCl 0.4 MG CAP PO SCH (08:27)
[2017-05-04] MEDS: guaiFENesin ER 600 MG TAB PO SCH ×2 (08:27→20:28)
[2017-05-04] MEDS: Metoprolol Tartrate 50 MG TAB PO SCH ×2 (08:28→20:28)
[2017-05-04] MEDS: Vancomycin HCl 125 MG Capsule PO SCH ×4 (08:28→20:28)
[2017-05-04] MEDS: Cephalexin 500 MG CAP PO SCH ×2 (08:28→20:28)
[2017-05-04] MEDS: Cyanocobalamin (Vitamin B-12) 1,000 MCG TAB PO SCH (08:28)
[2017-05-04] MEDS: Furosemide 40 MG TAB PO SCH ×2 (08:28→13:41)
[2017-05-04] MEDS: Folic Acid 1 MG TAB PO SCH (08:28)
--- NOTE | 2017-05-04 10:58 | RAD ---
CHEST TWO VIEWS: History: Congestive heart failure. Comparison: 04-16-17 FINDINGS: Persistent elevation of left hemidiaphragm. There are small bilateral pleural effusions. Chronic mcgraw ges of the lung parenchyma. No masses or consolidation. There is no pneumothorax. Cardiac silhouette appears to be enlarged. IMPRESSION: 1. Small bilateral effusions. POS: [facility]
[2017-05-04] MEDS: Warfarin Sodium 5 MG TAB PO SCH (17:06)
--- NOTE | 2017-05-04 20:13 | PRG ---
DATE OF SERVICE: 05/04/2017 SUBJECTIVE: The patient feels well. No shortness of breath or chest pain. Somewhat weak, did not r est well last night. OBJECTIVE: VITAL SIGNS: Blood pressure 111/67, pulse 94, temperature 97.6, respirations 18, O2 sats 98% on 2 li ters. LUNGS: Decreased breath sounds in bases. CARDIAC: Regular rhythm. SKIN AND EXTREMITIES: Persistent edema and decreasing erythema. Chest x-ray only showing small bilateral effusions. PT is 19.5, INR is still low at 1.6. ASSESSMENT: 1. Resolving cellulitis of right leg. 2. Resolved Clostridium difficile colitis. 3. Chronic atrial fibrillation with rate control, but persistent inadequate anticoagulation. PLAN: Continue Lasix 40 twice daily. Start 1500 mL fluid restriction. Continue warfarin 6 mg daily and check PT/INR next day. We will check BMP, BNP in the a.m. Continue Keflex for cellulitis of ri ght leg. Continue oral vancomycin for resolved Clostridium difficile colitis.
[2017-05-04] MEDS: Melatonin 3 MG TAB PO SCH (20:28)
[2017-05-05] MEDS: Acetaminophen 500 MG TAB PO PRN (01:19)
[2017-05-05] MEDS: traMADol HCl 50 MG TAB PO PRN (01:19)
[2017-05-05] MEDS: Levothyroxine Sodium 25 MCG TAB PO SCH (05:18)
[2017-05-05] MEDS: Budesonide 0.5 MG/2 ML NEB NEB SCH ×2 (05:21→18:16)
[2017-05-05 05:44] LABS: #Basophils 0.1 thou/uL (0.0-0.2); #Eosinphils 0.2 thou/uL (0.0-0.7); #Monocytes 0.8 thou/uL (0.11-0.59); #Neutrophils 5.8 thou/uL (1.40-6.50); %Basophils 1.6 % (0.0-1.0); %Eosinophils 1.9 % (0.0-10.0); %Lymphocytes 12.9 % (21.0-51.0); %Monocytes 10.1 % (0.0-10.0); %Neutrophils 73.5 % (42.0-75.0); Hemoglobin 11.5 g/dL (14.0-18.0); Mean Corpuscular HGB CONC 31.7 g/dL (32.0-36.0); Mean Corpuscular Hemoglobin 30.9 pg (27.0-31.0); Mean Corpuscular Volume 97.4 fl (80.0-94.0); Mean Platelet Volume 8.7 fL (7.4-10.4); Platelet Count 132 thou/uL (130-400); Red Blood Cell (RBC) Count 3.71 mill/uL (4.70-6.10); White Blood Cell (WBC) Count 7.9 thou/uL (4.8-10.8)
[2017-05-05 05:51] LABS: INR-International Normal Ratio 1.7; Prothrombin Time 20.1 SEC (12.0-14.7)
[2017-05-05 05:57] LABS: Anion Gap 12 mmol/L (10-20); BUN (Urea Nitrogen) 27 mg/dL (8.4-25.7); Calc. Creatinine Clearance 51 mL/min (70-130); Calcium 8.4 mg/dL (7.8-10.44); Carbon Dioxide 33 mmol/L (23-31); Chloride 94 mmol/L (98-107); Estimated GFR-MDRD 63; Glucose 87 mg/dL (83-110); Sodium 135 mmol/L (136-145)
[2017-05-05] MEDS: Cephalexin 500 MG CAP PO SCH ×2 (08:32→21:09)
[2017-05-05] MEDS: Furosemide 40 MG TAB PO SCH ×2 (08:33→13:15)
[2017-05-05] MEDS: Cyanocobalamin (Vitamin B-12) 1,000 MCG TAB PO SCH (08:33)
[2017-05-05] MEDS: guaiFENesin ER 600 MG TAB PO SCH ×2 (08:33→21:09)
[2017-05-05] MEDS: Folic Acid 1 MG TAB PO SCH (08:33)
[2017-05-05] MEDS: Metoprolol Tartrate 50 MG TAB PO SCH ×2 (08:34→21:09)
[2017-05-05] MEDS: Vancomycin HCl 125 MG Capsule PO SCH ×4 (08:34→21:09)
[2017-05-05] MEDS: Tamsulosin HCl 0.4 MG CAP PO SCH (08:34)
[2017-05-05] MEDS: Warfarin Sodium 5 MG TAB PO SCH (17:13)
[2017-05-05] MEDS: Melatonin 3 MG TAB PO SCH (21:05)
[2017-05-06] MEDS: traMADol HCl 50 MG TAB PO PRN (05:27)
[2017-05-06] MEDS: Levothyroxine Sodium 25 MCG TAB PO SCH (05:27)
[2017-05-06] MEDS: Budesonide 0.5 MG/2 ML NEB NEB SCH ×2 (05:28→18:13)
[2017-05-06 05:38] LABS: INR-International Normal Ratio 1.6; Prothrombin Time 19.9 SEC (12.0-14.7)
[2017-05-06] MEDS ORDERED: Warfarin Sodium 5 MG TAB PO SCH (08:01)
[2017-05-06] MEDS: Cyanocobalamin (Vitamin B-12) 1,000 MCG TAB PO SCH (09:07)
[2017-05-06] MEDS: Folic Acid 1 MG TAB PO SCH (09:07)
[2017-05-06] MEDS: guaiFENesin ER 600 MG TAB PO SCH ×2 (09:07→20:43)
[2017-05-06] MEDS: Furosemide 40 MG TAB PO SCH ×2 (09:07→13:11)
[2017-05-06] MEDS: Cephalexin 500 MG CAP PO SCH ×2 (09:07→20:43)
[2017-05-06] MEDS: Tamsulosin HCl 0.4 MG CAP PO SCH (09:08)
[2017-05-06] MEDS: Vancomycin HCl 125 MG Capsule PO SCH ×4 (09:08→20:43)
[2017-05-06] MEDS: Metoprolol Tartrate 50 MG TAB PO SCH ×2 (09:08→20:43)
--- NOTE | 2017-05-06 11:55 | PRG ---
DATE OF SERVICE: 05/05/2017 SUBJECTIVE: The patient feels well. Still some edema, very weak, but is cooperating with therapy. OBJECTIVE: VITAL SIGNS: Temperature 96, pulse 98, respirations 18, O2 sats 97% on 2 liters, blood pressure 109/ 70. Intake and output shows 1320 in and 250 out, but not completely measured. Weight stable at 149. SKIN/EXTREMITIES: Show decreased edema. LUNGS: Show persistent rales in the bases, but good breath sounds. LABORATORY DATA: White count 7900, hematocrit 36, hemoglobin 11. Sodium 135, potassium 4.0, chlorid e 94, bicarbonate 33, BUN 27, creatinine 1.13. BNP elevated at 762. ASSESSMENT: 1. Resolving pneumonia, on antibiotics, on Keflex until 05/09/2017. 2. Resolving Clostridium difficile colitis, on vancomycin until 05/23/2017. 3. Atrial fibrillation, rate controlled and anticoagulation, subtherapeutic on 5 mg of warfarin. We will increase to 6 mg daily, PT/INR 1.6. 4. Persistent edema, congestive heart failure with stable renal function on increasing furosemide 40 twice daily, but persistent elevated BNP. PLAN: Continue PT, OT. Continue Lasix 40 twice daily. Continue 1500 mL fluid restriction. Start w arfarin 6 mg daily. Finish Keflex on 05/09/2017. Continue on vancomycin until 05/23/2017.
--- NOTE | 2017-05-06 12:17 | PRG ---
DATE OF SERVICE: 05/06/2017 SUBJECTIVE: The patient feels well, sitting in bed, but still having weakness, but with no real shor tness of breath at rest, is cooperating and walking with therapy, is having decreasing swelling and t enderness in the left leg. OBJECTIVE: EXTREMITIES: Left calf shows persistent edema, but markedly decreased erythema. LUNGS: Show decreased breath sounds in the bases, but no rales or rhonchi. CARDIAC: Showed regular rhythm. VITAL SIGNS: Show blood pressure of 109/66, temperature 97, pulse is 96, O2 sats 99% on 2 liters. ASSESSMENT: 1. Resolving cellulitis of right leg, on Keflex until 05/09/2017 2. Resolving Clostridium difficile colitis, on vancomycin. 3. Significant deconditioning, slowly improving. 4. Atrial fibrillation with rate control and anticoagulation on warfarin 6 mg daily. PLAN: Continue PT, OT. Continue Keflex. Continue oral vancomycin. Continue oral Lasix 40 twice da minda and repeat base met profile in several days.
[2017-05-06] MEDS: Warfarin Sodium 3 MG TAB PO SCH (17:08)
[2017-05-06] MEDS: Melatonin 3 MG TAB PO SCH (20:43)
[2017-05-07] MEDS: Levothyroxine Sodium 25 MCG TAB PO SCH (05:46)
[2017-05-07] MEDS: Budesonide 0.5 MG/2 ML NEB NEB SCH ×2 (05:47→17:45)
[2017-05-07] MEDS: Cephalexin 500 MG CAP PO SCH ×2 (08:36→20:28)
[2017-05-07] MEDS: Vancomycin HCl 125 MG Capsule PO SCH ×4 (08:36→20:28)
[2017-05-07] MEDS: guaiFENesin ER 600 MG TAB PO SCH ×2 (08:36→20:28)
[2017-05-07] MEDS: Tamsulosin HCl 0.4 MG CAP PO SCH (08:36)
[2017-05-07] MEDS: Folic Acid 1 MG TAB PO SCH (08:36)
[2017-05-07] MEDS: Cyanocobalamin (Vitamin B-12) 1,000 MCG TAB PO SCH (08:37)
[2017-05-07] MEDS: Metoprolol Tartrate 50 MG TAB PO SCH ×2 (08:37→20:27)
[2017-05-07] MEDS: Furosemide 40 MG TAB PO SCH ×2 (08:37→14:13)
[2017-05-07] MEDS ORDERED: Oseltamivir 75 MG CAP PO SCH (11:00)
[2017-05-07] MEDS: Artificial Tear Sol 15 ML BOT EA EYE PRN (11:59)
[2017-05-07] MEDS: Acetaminophen 500 MG TAB PO PRN (14:14)
[2017-05-07] MEDS: Warfarin Sodium 3 MG TAB PO SCH (17:45)
[2017-05-07] MEDS: Oseltamivir 75 MG CAP PO SCH (20:28)
[2017-05-07] MEDS: Melatonin 3 MG TAB PO SCH (20:28)
--- NOTE | 2017-05-08 02:11 | PRG ---
DATE OF ADMISSION: 04/30/2017 SUBJECTIVE: Mr. Jimenez is a very pleasant thin 77-year-old white male that had a cellulitis of the right lower leg. He was treated at [facility] with vancomycin. He developed C. diff and was tr eated with vancomycin, it would resolve. He was transferred to [facility] for physical therapy and occupational therapy because of his generalized weakness. He is participating well. He has multiple comorbidities. PHYSICAL EXAMINATION: VITAL SIGNS: Reveals blood pressure 113/86, pulse 79 to 94, respirations 20, O2 sat 95% on 2 liters, T-max 97.8. GENERAL: This is a well-developed, well-nourished, very pleasant white male in no apparent distress at this time. HEENT: Reveals normocephalic, nontraumatic cranium. Pupils are equally round and reactive. Extraoc ular movements are intact. Nose and throat are slightly dry. NECK: Supple, without masses, nodes, or bruits. CHEST: Clear to auscultation. No rales, rhonchi, or wheezes are heard. CARDIOVASCULAR: Reveals a regular rate and rhythm, no murmurs, gallops, or rubs. ABDOMEN: Soft, nontender, without organomegaly, normal bowel sounds are noted. No rebound or guardi ng is noted. : Deferred. EXTREMITIES: Reveal cellulitis of the right leg. Still on Keflex until 05/09. ASSESSMENT: 1. Cellulitis of the right leg. 2. Clostridium difficile colitis on vancomycin. 3. Generalized weakness. 4. Atrial fibrillation, rate control, on anticoagulation. PLAN: 1. Continue present antibiotics. 2. Continue stress ulcer prophylaxis. 3. Deep vein thrombosis prophylaxis. 4. Decubitus precautions. 5. Physical therapy and occupational therapy.
[2017-05-08] MEDS: Levothyroxine Sodium 25 MCG TAB PO SCH (05:16)
[2017-05-08] MEDS: Budesonide 0.5 MG/2 ML NEB NEB SCH ×2 (05:17→18:05)
[2017-05-08 05:41] LABS: INR-International Normal Ratio 1.9; Prothrombin Time 22.8 SEC (12.0-14.7)
[2017-05-08] MEDS: Oseltamivir 75 MG CAP PO SCH ×2 (08:48→21:05)
[2017-05-08] MEDS: guaiFENesin ER 600 MG TAB PO SCH ×2 (08:48→21:05)
[2017-05-08] MEDS: Cephalexin 500 MG CAP PO SCH ×2 (08:48→21:06)
[2017-05-08] MEDS: Tamsulosin HCl 0.4 MG CAP PO SCH (08:48)
[2017-05-08] MEDS: Folic Acid 1 MG TAB PO SCH (08:49)
[2017-05-08] MEDS: Vancomycin HCl 125 MG Capsule PO SCH ×4 (08:49→21:05)
[2017-05-08] MEDS: Metoprolol Tartrate 50 MG TAB PO SCH ×2 (08:49→21:06)
[2017-05-08] MEDS: Cyanocobalamin (Vitamin B-12) 1,000 MCG TAB PO SCH (08:49)
[2017-05-08] MEDS: Furosemide 40 MG TAB PO SCH ×2 (08:49→13:39)
--- NOTE | 2017-05-08 16:35 | PRG ---
DATE OF SERVICE: 05/08/2017 SUBJECTIVE: Mr. Jimenez is doing well except he states that he is not sleeping well at night. He de nies any other concerns or questions. No family at bedside. OBJECTIVE: VITAL SIGNS: He is afebrile. Heart rate 82, respirations 18, oxygen saturation 98% on 2 liters and blood pressure is 104/72. CARDIOVASCULAR SYSTEM: S1 and S2+. RESPIRATORY SYSTEM: Normal vesicular breath sounds. ABDOMEN: Soft and nontender. Bowel sounds heard in all quadrants. EXTREMITIES: Without cyanosis or clubbing. Peripheral pulses are palpable. CENTRAL NERVOUS SYSTEM: Grossly nonfocal except for generalized weakness. LABORATORY VALUES: His INR is 1.9. IMPRESSION: 1. Healing cellulitis, right leg. 2. Clostridium difficile colitis, on vancomycin. 3. Generalized weakness. 4. Atrial fibrillation, on warfarin. 5. Insomnia, on melatonin. 6. Benign prostatic hypertrophy. 7. Resolving influenza. PLAN: 1. Continue current medications. 2. Nutritional support. 3. Decubitus precautions. 4. Titrate oxygen. 5. Monitor PT and INR. 6. Continue melatonin. 7. Routine laboratory values.
[2017-05-08] MEDS: Warfarin Sodium 3 MG TAB PO SCH (17:12)
[2017-05-08] MEDS: Melatonin 3 MG TAB PO SCH (21:05)
[2017-05-09] MEDS: Levothyroxine Sodium 25 MCG TAB PO SCH (05:40)
[2017-05-09] MEDS: Budesonide 0.5 MG/2 ML NEB NEB SCH ×2 (05:41→17:46)
[2017-05-09 05:58] LABS: Prothrombin Time 23.3 SEC (12.0-14.7)
[2017-05-09] MEDS: Metoprolol Tartrate 50 MG TAB PO SCH ×2 (08:38→20:50)
[2017-05-09] MEDS: Cyanocobalamin (Vitamin B-12) 1,000 MCG TAB PO SCH (08:39)
[2017-05-09] MEDS: Cephalexin 500 MG CAP PO SCH ×2 (08:39→20:50)
[2017-05-09] MEDS: Vancomycin HCl 125 MG Capsule PO SCH ×4 (08:39→20:50)
[2017-05-09] MEDS: Tamsulosin HCl 0.4 MG CAP PO SCH (08:39)
[2017-05-09] MEDS: Oseltamivir 75 MG CAP PO SCH ×2 (08:39→20:49)
[2017-05-09] MEDS: Furosemide 40 MG TAB PO SCH ×2 (08:39→13:14)
[2017-05-09] MEDS: guaiFENesin ER 600 MG TAB PO SCH ×2 (08:39→20:49)
[2017-05-09] MEDS: Folic Acid 1 MG TAB PO SCH (08:39)
--- NOTE | 2017-05-09 11:14 | PRG ---
DATE OF SERVICE: 05/09/2017 SUBJECTIVE: Mr. Jimenez is doing the same. He states that he did not sleep well last night. He is not sure whether he got his sleeping pill. I asked him to make sure he asks for it. OBJECTIVE: VITAL SIGNS: He is afebrile, heart rate is 92, respirations 20, oxygen saturation 97%, blood pressur e is 97/63. CARDIOVASCULAR SYSTEM: S1, S2 plus. RESPIRATORY SYSTEM: Normal vesicular breath sounds. ABDOMEN: Soft, nontender, bowel sounds heard in all quadrants. EXTREMITIES: Without cyanosis or clubbing. IMPRESSION: 1. Resolving cellulitis, right leg. 2. Clostridium difficile colitis, improving. 3. Deconditioning. 4. Atrial fibrillation on warfarin. His INR today is 2.0. 5. Insomnia, on melatonin and p.r.n. temazepam. Advised patient to make sure he asked for temazepam . 6. Benign prostatic hypertrophy. PLAN: 1. Continue current medications. 2. Nutritional support. 3. Monitor PT and INR. 4. DVT and stress ulcer prophylaxis. 5. Decubitus precautions. 6. Physical therapy.
[2017-05-09] MEDS: Warfarin Sodium 3 MG TAB PO SCH (17:09)
[2017-05-09] MEDS: Artificial Tear Sol 15 ML BOT EA EYE PRN (17:09)
[2017-05-09] MEDS: Melatonin 3 MG TAB PO SCH (20:50)
[2017-05-10] MEDS: Levothyroxine Sodium 25 MCG TAB PO SCH (05:03)
[2017-05-10] MEDS: Budesonide 0.5 MG/2 ML NEB NEB SCH ×2 (05:04→18:25)
[2017-05-10 05:49] LABS: INR-International Normal Ratio 2.4
[2017-05-10] MEDS: Folic Acid 1 MG TAB PO SCH (08:57)
[2017-05-10] MEDS: Cyanocobalamin (Vitamin B-12) 1,000 MCG TAB PO SCH (08:57)
[2017-05-10] MEDS: Tamsulosin HCl 0.4 MG CAP PO SCH (08:57)
[2017-05-10] MEDS: Furosemide 40 MG TAB PO SCH ×2 (08:57→13:00)
[2017-05-10] MEDS: Metoprolol Tartrate 50 MG TAB PO SCH ×2 (08:57→20:38)
[2017-05-10] MEDS: guaiFENesin ER 600 MG TAB PO SCH ×2 (08:57→20:38)
[2017-05-10] MEDS: Vancomycin HCl 125 MG Capsule PO SCH ×4 (08:58→20:37)
[2017-05-10] MEDS: Oseltamivir 75 MG CAP PO SCH ×2 (08:58→20:37)
[2017-05-10] MEDS: Warfarin Sodium 3 MG TAB PO SCH (17:01)
[2017-05-10] MEDS: Melatonin 3 MG TAB PO SCH (20:38)
[2017-05-11] MEDS: Guaifenesin DM 100-10/5 ML UDCUP PO PRN (00:52)
[2017-05-11] MEDS: Levothyroxine Sodium 25 MCG TAB PO SCH (05:32)
[2017-05-11] MEDS: Budesonide 0.5 MG/2 ML NEB NEB SCH ×2 (05:33→18:16)
[2017-05-11 05:36] LABS: INR-International Normal Ratio 2.8; Prothrombin Time 31.1 SEC (12.0-14.7)
--- NOTE | 2017-05-11 07:37 | PRG ---
DATE OF SERVICE: 05/11/2017 SUBJECTIVE: The patient feels better with the increasing strength, ambulating with a therapist in [facility], but still states he is very weak. He is denying any cough or shortness of breath at rest. S kin and extremities show markedly decreased erythema, off Keflex as was finished yesterday. He is red ving no further diarrhea on vancomycin taper. OBJECTIVE: VITAL SIGNS: Temperature 97.5, pulse 91, respirations 18, O2 sat 99% on 2 liters, blood pressure 127 /68. EXTREMITIES: Shows above-mentioned leg shows 1-2+ edema, but no erythema or tenderness. LUNGS: Show decreased breath sounds in the bases. CARDIAC: Cardiac examination shows an irregularly irregular rhythm. PMI in the fifth intercostal sp kim midclavicular line. ABDOMEN: Abdomen is soft and nontender. LABORATORY: Show PT/INR therapeutic at 27 and 2.4. ASSESSMENT: 1. Resolved cellulitis, off of Keflex 2. Resolving Clostridium difficile colitis with no diarrhea on the tapered dose of vancomycin. 3. Stable benign prostatic hypertrophy with decreasing lower tract obstructive symptoms. 4. Stable congestive heart failure on furosemide twice daily. PLAN: 1. Continue PT, OT. 2. Continue furosemide 40 twice daily and check laboratories tomorrow. 3. Continue vancomycin tapering and decrease to 125 twice daily.
[2017-05-11 08:07] LABS: #Basophils 0.1 thou/uL (0.0-0.2); #Eosinphils 0.1 thou/uL (0.0-0.7); #Lymphocytes 1.4 thou/uL (1.20-3.40); #Monocytes 0.7 thou/uL (0.11-0.59); #Neutrophils 3.5 thou/uL (1.40-6.50); %Basophils 1.1 % (0.0-1.0); %Eosinophils 1.5 % (0.0-10.0); %Lymphocytes 24.4 % (21.0-51.0); %Monocytes 12.8 % (0.0-10.0); %Neutrophils 60.2 % (42.0-75.0); Mean Corpuscular Hemoglobin 30.6 pg (27.0-31.0); Mean Corpuscular Volume 95.4 fl (80.0-94.0); Mean Platelet Volume 9.6 fL (7.4-10.4); Platelet Count 126 thou/uL (130-400); RBC Distribution Width 15.3 % (11.5-14.5); Red Blood Cell (RBC) Count 3.91 mill/uL (4.70-6.10); White Blood Cell (WBC) Count 5.8 thou/uL (4.8-10.8)
[2017-05-11 08:11] LABS: ALT (SGPT) 24 U/L (8-55); AST (SGOT) 31 U/L (5-34); Albumin 2.9 g/dL (3.4-4.8); Alkaline Phosphatase 163 U/L (40-150); Anion Gap 14 mmol/L (10-20); BUN (Urea Nitrogen) 20 mg/dL (8.4-25.7); Bilirubin, Total 0.6 mg/dL (0.2-1.2); Calc. Creatinine Clearance 53 mL/min (70-130); Calcium 8.5 mg/dL (7.8-10.44); Carbon Dioxide 32 mmol/L (23-31); Chloride 95 mmol/L (98-107); Estimated GFR-MDRD 64; Globulin 2.7 g/dL (2.4-3.5); Glucose 85 mg/dL (83-110); Potassium 3.6 mmol/L (3.5-5.1); Protein, Total 5.6 g/dL (5.8-8.1); Sodium 137 mmol/L (136-145)
[2017-05-11] MEDS: Folic Acid 1 MG TAB PO SCH (08:31)
[2017-05-11] MEDS: Metoprolol Tartrate 50 MG TAB PO SCH ×2 (08:31→21:18)
[2017-05-11] MEDS: Cyanocobalamin (Vitamin B-12) 1,000 MCG TAB PO SCH (08:31)
[2017-05-11] MEDS: guaiFENesin ER 600 MG TAB PO SCH ×2 (08:31→21:17)
[2017-05-11] MEDS: Oseltamivir 75 MG CAP PO SCH ×2 (08:31→21:17)
[2017-05-11] MEDS: Tamsulosin HCl 0.4 MG CAP PO SCH (08:31)
[2017-05-11] MEDS: Furosemide 40 MG TAB PO SCH ×2 (08:31→14:15)
[2017-05-11] MEDS: Vancomycin HCl 125 MG Capsule PO SCH ×2 (08:57→21:18)
[2017-05-11] MEDS: Warfarin Sodium 3 MG TAB PO SCH (17:18)
[2017-05-11] MEDS: Melatonin 3 MG TAB PO SCH (21:17)
[2017-05-12 05:44] LABS: INR-International Normal Ratio 3.1; Prothrombin Time 33.7 SEC (12.0-14.7)
[2017-05-12] MEDS: Levothyroxine Sodium 25 MCG TAB PO SCH (05:57)
[2017-05-12] MEDS: Budesonide 0.5 MG/2 ML NEB NEB SCH ×2 (05:57→18:17)
[2017-05-12] MEDS ORDERED: Warfarin Sodium 3 MG TAB PO SCH (07:18)
--- NOTE | 2017-05-12 07:29 | PRG ---
DATE OF SERVICE: 05/11/2017 SUBJECTIVE: The patient feels well, sitting up in the chair, sleeping well through the night, jenny ating well with therapy. OBJECTIVE: VITAL SIGNS: Shows temperature 95.5, pulse 86, respirations 22, O2 sats 98% on 2 liters, blood press ure 104/72. LABORATORY: Laboratory show white count 5800, hematocrit 37, hemoglobin 12. PT 31.1, INR 2.8, sodiu m 137, potassium 3.6, chloride 95, bicarbonate 32, BUN 20, creatinine 1.11, glucose 85, AST 31, ALT 2 4, albumin 2.9, improved from 2.6 on admission. LUNGS: Lungs show decreased breath sounds in the bases, but no wheezes or rales. CARDIAC: Cardiac examination displays irregularly irregular rhythm. SKIN AND EXTREMITIES: Skin and extremities show 1-2+ edema of ankles. Physical therapy states that the patient walked 260 feet yesterday, slow gait, increased strength, de creased dyspnea, and appeared to be improving but not to goal yet. Both lower legs show resolve cell ulitis. ASSESSMENT: 1. Resolved cellulitis, off antibiotics. 2. Resolving Clostridium difficile on tapering dose of vancomycin down to 125 twice daily. 3. Improving deconditioning walking 260 feet, but still not to goal. 4. Resolving empiric treatment for influenza on Tamiflu until 9 o'clock tonight. 5. Improving congestive heart failure on oral furosemide with stable renal function. PLAN: 1. Continue PT, OT. 2. Check PT/INR in the a.m. and may need to decrease dose to 6 mg. 3. Finish Tamiflu tomorrow. 4. Continue diuresis. Monitor renal function and cardiac function. 5. Continue PT.
[2017-05-12] MEDS: Folic Acid 1 MG TAB PO SCH (09:43)
[2017-05-12] MEDS: Furosemide 40 MG TAB PO SCH ×2 (09:43→13:18)
[2017-05-12] MEDS: Cyanocobalamin (Vitamin B-12) 1,000 MCG TAB PO SCH (09:43)
[2017-05-12] MEDS: Metoprolol Tartrate 50 MG TAB PO SCH ×2 (09:44→21:09)
[2017-05-12] MEDS: Vancomycin HCl 125 MG Capsule PO SCH ×2 (09:44→21:10)
[2017-05-12] MEDS: guaiFENesin ER 600 MG TAB PO SCH ×2 (09:44→21:07)
[2017-05-12] MEDS: Tamsulosin HCl 0.4 MG CAP PO SCH (09:44)
[2017-05-12] MEDS: Guaifenesin DM 100-10/5 ML UDCUP PO PRN (09:47)
[2017-05-12] MEDS ORDERED: Warfarin Sodium 5 MG TAB PO SCH (17:00)
[2017-05-12] MEDS ORDERED: Oseltamivir 75 MG CAP PO SCH (21:00)
[2017-05-12] MEDS: Melatonin 3 MG TAB PO SCH (21:07)
[2017-05-13 05:15] LABS: INR-International Normal Ratio 3.8
[2017-05-13] MEDS: Levothyroxine Sodium 25 MCG TAB PO SCH (05:59)
[2017-05-13] MEDS: Budesonide 0.5 MG/2 ML NEB NEB SCH ×2 (06:01→18:16)
--- NOTE | 2017-05-13 07:21 | PRG ---
DATE OF SERVICE: 05/12/2017 SUBJECTIVE: The patient feels better today with no dyspnea at rest. Still very weak, cooperating we ll with therapy. He is having mild increase in edema of his legs. OBJECTIVE: VITAL SIGNS: His temperature is 96.7, pulse 89, respirations 18, O2 sat is 94% on 2 liters, blood pr essure 93/64. LUNGS: Show decreased breath sounds in the bases. CARDIAC: Examination reveals irregularly irregular rhythm. ABDOMEN: Soft and nontender. SKIN AND EXTREMITIES: Show 2+ edema. LABORATORY DATA: BNP is down slightly to 683, but still elevated. ASSESSMENT: 1. Resolved cellulitis of legs with persistent lymphedema 2. Resolving Clostridium difficile on tapering dose of vancomycin. 3. Improving deconditioning. 4. Resolved influenza, off Tamiflu. 5. Chronic atrial fibrillation with excessive rate, anticoagulation. PLAN: Repeat PT/INR in the a.m. Decrease warfarin 5 mg daily. Continue vancomycin for Clostridium difficile until 05/23/2017. Stop Tamiflu. Continue compression dressings of leg. Continue physical therapy.
[2017-05-13] MEDS: Folic Acid 1 MG TAB PO SCH (09:05)
[2017-05-13] MEDS: Metoprolol Tartrate 50 MG TAB PO SCH ×2 (09:05→21:14)
[2017-05-13] MEDS: Cyanocobalamin (Vitamin B-12) 1,000 MCG TAB PO SCH (09:05)
[2017-05-13] MEDS: Tamsulosin HCl 0.4 MG CAP PO SCH (09:05)
[2017-05-13] MEDS: Vancomycin HCl 125 MG Capsule PO SCH ×2 (09:05→21:14)
[2017-05-13] MEDS: Furosemide 40 MG TAB PO SCH ×2 (09:05→13:27)
[2017-05-13] MEDS: guaiFENesin ER 600 MG TAB PO SCH ×2 (09:06→21:14)
[2017-05-13] MEDS: traMADol HCl 50 MG TAB PO PRN ×2 (09:06→21:15)
--- NOTE | 2017-05-13 14:07 | RAD ---
TWO VIEWS OF THE CHEST: Comparison: 05-04-17 History: CHF, difficulty breathing. FINDINGS: Two views of the chest shows a cardiomediastinal silhouette which is upper limits of normal in size. Small bilateral pleural effusions with adjacent atelectasis are seen. No consolidation is seen. Degen erative changes are seen in the spine. IMPRESSION: Small bilateral pleural effusions with adjacent atelectasis. POS: [facility]
[2017-05-13] MEDS ORDERED: Warfarin Sodium 5 MG TAB PO SCH (17:00)
--- NOTE | 2017-05-13 17:30 | PRG ---
DATE OF SERVICE: 05/13/2017 SUBJECTIVE: The patient is very weak and short of breath, but denies symptoms at rest, was having ma rkedly decreased edema on prone position with increase on dependent position, has been eating well, b ut had been compliant of fluid restriction. OBJECTIVE: VITAL SIGNS: Shows temperature is 96.3, pulse 82 and irregular, respirations 20, O2 sats 97% on [address], blood pressure 103/63. LUNGS: Clear. Decreased breath sounds in the bases. CARDIAC: Shows irregular regular rhythm. SKIN AND EXTREMITIES: Show 2+ edema. LABORATORY AND IMAGING DATA: Chest x-ray today shows small bilateral effusions and atelectasis, but no pulmonary congestion or cardiomegaly. PT/INR is supratherapeutic at 3.8. ASSESSMENT: 1. Stable atrial fibrillation with rate control with super anticoagulation. We will hold warfarin t alonso and repeat PT/INR tomorrow. 2. Resolve cellulitis of the leg with persistent dependent edema, no evidence of infection. 3. Resolved Clostridium difficile colitis, on tapering dose of vancomycin. 4. Significant deconditioning, slowly improving. PLAN: Hold warfarin. Repeat PT/INR in the a.m. Continue compression wraps of leg. Continue physic al therapy and occupational therapy. Continue furosemide 40 twice daily.
[2017-05-13] MEDS: Melatonin 3 MG TAB PO SCH (21:14)
[2017-05-14 05:24] LABS: INR-International Normal Ratio 3.8; Prothrombin Time 39.5 SEC (12.0-14.7)
[2017-05-14 05:30] LABS: Anion Gap 13 mmol/L (10-20); BUN (Urea Nitrogen) 20 mg/dL (8.4-25.7); Calc. Creatinine Clearance 51 mL/min (70-130); Calcium 8.7 mg/dL (7.8-10.44); Carbon Dioxide 36 mmol/L (23-31); Chloride 93 mmol/L (98-107); Estimated GFR-MDRD 61; Glucose 86 mg/dL (83-110); Potassium 3.5 mmol/L (3.5-5.1); Sodium 138 mmol/L (136-145)
[2017-05-14] MEDS: Levothyroxine Sodium 25 MCG TAB PO SCH (06:16)
[2017-05-14] MEDS: Budesonide 0.5 MG/2 ML NEB NEB SCH ×2 (06:16→17:50)
[2017-05-14] MEDS: Vancomycin HCl 125 MG Capsule PO SCH ×2 (08:27→21:24)
[2017-05-14] MEDS: Folic Acid 1 MG TAB PO SCH (08:27)
[2017-05-14] MEDS: Metoprolol Tartrate 50 MG TAB PO SCH ×2 (08:27→21:24)
[2017-05-14] MEDS: Cyanocobalamin (Vitamin B-12) 1,000 MCG TAB PO SCH (08:27)
[2017-05-14] MEDS: guaiFENesin ER 600 MG TAB PO SCH ×2 (08:28→21:24)
[2017-05-14] MEDS: Tamsulosin HCl 0.4 MG CAP PO SCH (08:28)
[2017-05-14] MEDS: Furosemide 40 MG TAB PO SCH ×2 (08:28→15:14)
--- NOTE | 2017-05-14 11:14 | PRG ---
DATE OF SERVICE: 05/14/2017 SUBJECTIVE: The patient feels better, walking in the halls without oxygen with fatigue, but no real shortness of breath or chest pain. The patient is still having dependent edema of his legs, improved with compression wraps and does admit that he has had this chronically. He denies any cough, sputum production, fever or chills. OBJECTIVE: VITAL SIGNS: Blood pressure is 101/58, O2 sat 93% on room air, pulse 95 with exercise, temperature i s 95.4. PT/INR is still supratherapeutic at 3.8 despite having warfarin held today and will continue to hold until PT/INR is less than 3 and then restart back on 5 mg daily. LUNGS: Lungs are showing decreased breath sounds in the bases. CARDIAC: Cardiac examination displays irregularly irregular rhythm. ABDOMEN: Abdomen is soft and nontender. SKIN AND EXTREMITIES: Skin and extremities show the above-mentioned dependent edema with some abrasi on, but no real serious infection off of antibiotics. ASSESSMENT: 1. Stable atrial fibrillation with rate control with supratherapeutic anticoagulation on warfarin 6 mg daily, now being held until PT/INR less than 3 and then start warfarin 5 mg daily. 2. Dependent edema, venous insufficiency, stable with compression wraps with resolved cellulitis. 3. Resolving Clostridium difficile colitis, on vancomycin 125 twice daily until 05/23/2017. PLAN: 1. Continue PT and OT. 2. Discontinue oxygen, monitor sats off oxygen. 3. Continue compression wraps of legs. 4. Continue to monitor for decompensation of congestive heart failure or chronic obstructive pulmona ry disease.
[2017-05-14] MEDS: Melatonin 3 MG TAB PO SCH (21:24)
[2017-05-15] MEDS: Levothyroxine Sodium 25 MCG TAB PO SCH (05:21)
[2017-05-15 05:23] LABS: INR-International Normal Ratio 3.1; Prothrombin Time 33.5 SEC (12.0-14.7)
[2017-05-15] MEDS: Budesonide 0.5 MG/2 ML NEB NEB SCH ×2 (05:31→17:57)
[2017-05-15] MEDS: Furosemide 40 MG TAB PO SCH ×2 (09:55→13:33)
[2017-05-15] MEDS: Folic Acid 1 MG TAB PO SCH (09:55)
[2017-05-15] MEDS: Metoprolol Tartrate 50 MG TAB PO SCH ×2 (09:55→21:16)
[2017-05-15] MEDS: Tamsulosin HCl 0.4 MG CAP PO SCH (09:55)
[2017-05-15] MEDS: guaiFENesin ER 600 MG TAB PO SCH ×2 (09:56→21:16)
[2017-05-15] MEDS: Cyanocobalamin (Vitamin B-12) 1,000 MCG TAB PO SCH (09:56)
[2017-05-15] MEDS: Vancomycin HCl 125 MG Capsule PO SCH ×2 (09:56→21:16)
--- NOTE | 2017-05-15 11:28 | PRG ---
DATE OF SERVICE: 05/15/2017 DATE OF ADMISSION: 04/30/2017 HISTORY OF PRESENT ILLNESS: Mr. Jimenez is a very pleasant 77-year-old white male initially admitted with cellulitis of the right lower leg. He was treated at [facility] with vancomycin, developed C. diff and treated with vancomycin. Eventually it resolved and was transferred to [facility] PT an d OT. Eventually, the patient was transferred to [facility] for physical therapy and occupational therapy because of generalized weakness. He has been participating well. He has multi ple comorbidities and continues to gradually get better. PHYSICAL EXAMINATION: VITAL SIGNS: Today reveal blood pressure pending this morning, otherwise, his pulse is 101, respirat ions 20, O2 saturation 97% on 1.5 liters nasal cannula. GENERAL: This is a well-developed, very thin white male in no apparent distress at this time. He st ates he is doing very well. HEENT: Reveals normocephalic and nontraumatic cranium. Pupils are equally round and reactive. Extr aocular movements are intact. Nose and throat are slightly dry. NECK: Supple without masses, nodes or bruits. CHEST: Clear to auscultation. No rales, no rhonchi, no wheezes are heard. HEART: Reveals a regular rate and rhythm without murmurs, gallops or rubs. ABDOMEN: Soft, nontender, scaphoid without organomegaly, normal bowel sounds are noted. No rebound or guarding is noted. GENITOURINARY: Deferred. EXTREMITIES: Reveal both legs are wrapped. I am not going to unwrap those and they have been put on ____ wound care. IMPRESSION: 1. Cellulitis of the right leg. 2. Bilateral probable lymphedema. 3. History of Clostridium difficile. 4. Generalized weakness. 5. Atrial fibrillation, rate controlled on anticoagulation. PLAN: 1. Continue stress ulcer prophylaxis. 2. Continue deep venous thrombosis prophylaxis. 3. Decubitus precautions. 4. Continue physical therapy and occupational therapy. 5. Continue present meds. 6. Continue physical therapy and occupational therapy. 7. Oxygen will be discontinued. We will monitor his oxygen status off of his oxygen. 8. Continue compression wraps to legs. 9. Continue to follow the patient closely for signs and symptoms of congestive heart failure or buffer chrome humberto obstructive pulmonary disease.
[2017-05-15] MEDS: Guaifenesin DM 100-10/5 ML UDCUP PO PRN (13:33)
[2017-05-15] MEDS: Melatonin 3 MG TAB PO SCH (21:16)
[2017-05-16 05:15] LABS: INR-International Normal Ratio 2.5; Prothrombin Time 27.6 SEC (12.0-14.7)
[2017-05-16] MEDS: Budesonide 0.5 MG/2 ML NEB NEB SCH ×2 (06:35→18:26)
[2017-05-16] MEDS: Levothyroxine Sodium 25 MCG TAB PO SCH (06:36)
--- NOTE | 2017-05-16 08:35 | PRG ---
DATE OF SERVICE: 05/16/2017 DATE OF ADMISSION: 04/30/2017 HISTORY OF PRESENT ILLNESS: Mr. Jimenez is a very pleasant 77-year-old white male initially admitted with cellulitis of his right lower leg. He was treated at [facility] with vancomycin. He deve loped C. diff and treated with oral vancomycin. It resolved and he was transferred to [facility] for physical therapy and occupational therapy. He has actually been doing very well. His INR gets a little elevated and his Coumadin 6 mg has been placed on hold until he got below 3. H is INR today is 2.4, so we will restart his warfarin 5 mg tonight. The patient understands and is up set with that. The patient states he is doing well and has no complaints. PHYSICAL EXAMINATION: VITAL SIGNS: Reveal blood pressure 104/64, pulse 84, respirations 18-20, O2 sat 97% on 2 liters nasa l cannula, T-max 98.1. GENERAL: This is a well-developed, well-nourished, very pleasant, thin white male in no apparent dis tress at this time. HEENT: Reveals normocephalic, nontraumatic cranium. Pupils are equally round and reactive. Extraoc ular movements are intact. Nose and throat are slightly dry. NECK: Supple, without masses, nodes or bruits. LUNGS: Chest is clear to auscultation. No rales, no rhonchi, no wheezes and no coughs are heard. HEART: Reveals a regular rate and rhythm without murmurs, gallops or rubs. ABDOMEN: Scaphoid, soft, nontender, without organomegaly. Normal bowel sounds are noted in all 4 qu adrants. No rebound or guarding is noted. : Deferred. EXTREMITIES: Reveal no clubbing, cyanosis or edema. Both legs are wrapped. Wound care will look at those again tomorrow. IMPRESSION: 1. Cellulitis of the right leg. 2. Bilateral lymphedema. 3. History of Clostridium difficile. 4. Generalized weakness. 5. History of atrial fibrillation, rate controlled and on anticoagulation. PLAN: 1. Continue stress ulcer prophylaxis. 2. Restart Coumadin 5 mg starting this evening and nightly. 3. Continue deep venous thrombosis prophylaxis. 4. Decubitus precautions. 5. Continue physical therapy and occupational therapy. 6. Continue present meds. 7. Monitor the patient off his oxygen. 8. Continue compression wraps to his legs. 9. Follow the patient closely for signs and symptoms of congestive heart failure.
[2017-05-16] MEDS: Cyanocobalamin (Vitamin B-12) 1,000 MCG TAB PO SCH (08:59)
[2017-05-16] MEDS: Metoprolol Tartrate 50 MG TAB PO SCH ×2 (08:59→21:07)
[2017-05-16] MEDS: Folic Acid 1 MG TAB PO SCH (08:59)
[2017-05-16] MEDS: guaiFENesin ER 600 MG TAB PO SCH ×2 (08:59→21:07)
[2017-05-16] MEDS: Furosemide 40 MG TAB PO SCH ×2 (08:59→15:40)
[2017-05-16] MEDS: Tamsulosin HCl 0.4 MG CAP PO SCH (08:59)
[2017-05-16] MEDS: Vancomycin HCl 125 MG Capsule PO SCH ×2 (08:59→21:07)
[2017-05-16] MEDS: Warfarin Sodium 5 MG TAB PO SCH (18:26)
[2017-05-16] MEDS: Melatonin 3 MG TAB PO SCH (21:06)
[2017-05-16] MEDS: traMADol HCl 50 MG TAB PO PRN (21:07)
[2017-05-16] MEDS: Guaifenesin DM 100-10/5 ML UDCUP PO PRN (22:53)
[2017-05-17] MEDS: Budesonide 0.5 MG/2 ML NEB NEB SCH ×2 (05:26→17:18)
[2017-05-17] MEDS: Levothyroxine Sodium 25 MCG TAB PO SCH (05:27)
[2017-05-17 05:37] LABS: INR-International Normal Ratio 2.4; Prothrombin Time 26.7 SEC (12.0-14.7)
[2017-05-17] MEDS: Furosemide 40 MG TAB PO SCH ×2 (08:02→14:15)
[2017-05-17] MEDS: Vancomycin HCl 125 MG Capsule PO SCH ×2 (08:02→21:30)
[2017-05-17] MEDS: guaiFENesin ER 600 MG TAB PO SCH ×2 (08:02→21:31)
[2017-05-17] MEDS: Cyanocobalamin (Vitamin B-12) 1,000 MCG TAB PO SCH (08:02)
[2017-05-17] MEDS: Tamsulosin HCl 0.4 MG CAP PO SCH (08:02)
[2017-05-17] MEDS: Folic Acid 1 MG TAB PO SCH (08:02)
[2017-05-17] MEDS: Metoprolol Tartrate 50 MG TAB PO SCH ×2 (09:16→21:31)
--- NOTE | 2017-05-17 09:44 | PRG ---
DATE OF SERVICE: 05/17/2017 SUBJECTIVE: The patient feels well, lying in bed, but is short of breath when discontinued oxygen an d not able do any therapy today. He is coughing up increased amounts of yellow-green sputum. OBJECTIVE: VITAL SIGNS: His temperature is 97.4, pulse is 87, respirations 18, O2 sats 96% on 2 liters, blood p ressure on 103/67. LUNGS: Lungs do show more crackles and rhonchi in the left lung. No wheezes. CARDIAC: Cardiac examination displays irregularly irregular rhythm. Laboratory shows PT/INR is therapeutic at 2.4 on 5 mg of warfarin. SKIN AND EXTREMITIES: Skin extremities show decreased, but persistent edema to the mid calf, but wi th decreased induration and tenderness. ASSESSMENT: 1. Stable atrial fibrillation, rate control on anticoagulation. 2. Stage III congestive heart failure with elevated BNP and slowly decreasing edema, on furosemide. 3. Persistent cough and hypoxemia, increased sputum production with history of pneumonia. PLAN: Obtain chest x-ray, CBC, comp metabolic. Continue warfarin 5 mg daily. Continue PT/INR daily . Continue physical therapy daily and monitor oxygen saturations. May need to change diuretic.
[2017-05-17] MEDS: Warfarin Sodium 5 MG TAB PO SCH (17:17)
--- NOTE | 2017-05-17 19:32 | RAD ---
PORTABLE CHEST: History: Pneumonia. Comparison: 05-13-17 FINDINGS: There continues to be abnormal opacification in the right lung base obscuring the right hemidiaphragm consistent with right basilar consolidation and effusion. Elevated left hemidiaphragm again noted. T he upper lung chacko remain clear. Heart size upper normal and stable. IMPRESSION: Continued abnormal opacification of the right lung base. POS: [facility]
[2017-05-17] MEDS: Melatonin 3 MG TAB PO SCH (21:29)
[2017-05-17] MEDS: traMADol HCl 50 MG TAB PO PRN (21:29)
[2017-05-18 05:27] LABS: #Basophils 0.1 thou/uL (0.0-0.2); #Eosinphils 0.1 thou/uL (0.0-0.7); #Lymphocytes 1.2 thou/uL (1.20-3.40); #Monocytes 0.9 thou/uL (0.11-0.59); #Neutrophils 5.7 thou/uL (1.40-6.50); %Eosinophils 0.9 % (0.0-10.0); %Lymphocytes 15.1 % (21.0-51.0); %Monocytes 11.5 % (0.0-10.0); %Neutrophils 71.5 % (42.0-75.0); Hemoglobin 11.4 g/dL (14.0-18.0); Mean Corpuscular HGB CONC 33.7 g/dL (32.0-36.0); Mean Corpuscular Hemoglobin 31.5 pg (27.0-31.0); Mean Corpuscular Volume 93.4 fl (80.0-94.0); Mean Platelet Volume 8.8 fL (7.4-10.4); Platelet Count 124 thou/uL (130-400); RBC Distribution Width 14.8 % (11.5-14.5); Red Blood Cell (RBC) Count 3.62 mill/uL (4.70-6.10); White Blood Cell (WBC) Count 7.9 thou/uL (4.8-10.8)
[2017-05-18 05:28] LABS: INR-International Normal Ratio 2.4; Prothrombin Time 27.3 SEC (12.0-14.7)
[2017-05-18 05:37] LABS: ALT (SGPT) 28 U/L (8-55); AST (SGOT) 35 U/L (5-34); Albumin 2.8 g/dL (3.4-4.8); Alkaline Phosphatase 164 U/L (40-150); Anion Gap 11 mmol/L (10-20); BUN (Urea Nitrogen) 23 mg/dL (8.4-25.7); Bilirubin, Total 0.8 mg/dL (0.2-1.2); Calc. Creatinine Clearance 55 mL/min (70-130); Calcium 8.6 mg/dL (7.8-10.44); Carbon Dioxide 34 mmol/L (23-31); Chloride 96 mmol/L (98-107); Estimated GFR-MDRD 65; Globulin 2.7 g/dL (2.4-3.5); Glucose 92 mg/dL (83-110); Potassium 3.6 mmol/L (3.5-5.1); Protein, Total 5.5 g/dL (5.8-8.1); Sodium 137 mmol/L (136-145)
[2017-05-18] MEDS: Levothyroxine Sodium 25 MCG TAB PO SCH (06:10)
[2017-05-18] MEDS: Budesonide 0.5 MG/2 ML NEB NEB SCH ×2 (06:11→17:39)
[2017-05-18] MEDS: Cyanocobalamin (Vitamin B-12) 1,000 MCG TAB PO SCH (09:41)
[2017-05-18] MEDS: Cefdinir 300 MG CAP PO SCH (09:41)
[2017-05-18] MEDS: Furosemide 40 MG TAB PO SCH ×2 (09:41→14:09)
[2017-05-18] MEDS: Metoprolol Tartrate 50 MG TAB PO SCH ×2 (09:41→21:46)
[2017-05-18] MEDS: Vancomycin HCl 125 MG Capsule PO SCH ×2 (09:41→21:45)
[2017-05-18] MEDS: Folic Acid 1 MG TAB PO SCH (09:41)
[2017-05-18] MEDS: Tamsulosin HCl 0.4 MG CAP PO SCH (09:41)
[2017-05-18] MEDS: guaiFENesin ER 600 MG TAB PO SCH ×2 (09:41→21:45)
--- NOTE | 2017-05-18 09:57 | CT ---
CT CHEST WITHOUT CONTRAST: Date: 05/18/17 HISTORY: Pleural effusion. FINDINGS: Absence of IV contrast reduces the sensitivity of exam, particularly for evaluation of mediastinal, h ilar, and vascular structures. There are vascular calcifications without evidence of aneurysmal dilatation of the thoracic aorta. No pericardial effusion is seen. The heart is enlarged. There are moderate bilateral pleural effusions, right larger than left, with adjacent infiltrates/atelectatic changes. Patchy ground-glass infiltrat es are seen in the upper lung chacko. No pneumothoraces are identified. There are degenerative change s in the spine. IMPRESSION: Bilateral pleural effusions, right larger than left, and bilateral lung infiltrates. POS: [facility]
[2017-05-18] MEDS: Warfarin Sodium 5 MG TAB PO SCH (17:38)
[2017-05-18] MEDS: Melatonin 3 MG TAB PO SCH (21:44)
[2017-05-18] MEDS: traMADol HCl 50 MG TAB PO PRN (21:45)
--- NOTE | 2017-05-19 02:16 | PRG ---
DATE OF SERVICE: 05/18/2017 SUBJECTIVE: The patient is lying in bed, resting well. States he is feeling stronger with no sympto ms at rest and decreasing dyspnea on exertion. OBJECTIVE: VITAL SIGNS: Shows temperature 96, pulse 95, respirations 18, O2 sats 98% on room air, blood pressur e range from 99/57-118/55. LUNGS: Show persistent decreased breath sounds at the bases with rales occasionally throughout the l aleksey. CARDIAC: Displays irregularly irregular rhythm. No gallops or murmurs. SKIN AND EXTREMITIES: Showed 2+ edema. Appears to be improving. No erythema or warmth. LABORATORY DATA: White count 7900, hematocrit 33, hemoglobin 11, PT 27, INR 2.4. Sodium 136, potass ium 3.6, chloride 96, bicarbonate 34, BUN 23, creatinine 1.09. CT of the chest showed bilateral pleu ral effusion, right greater than left with adjacent infiltrates and atelectatic changes, patchy groun d glass infiltrates in the upper lung chacko. ASSESSMENT: 1. Stable atrial fibrillation with rate control with anticoagulation, therapeutic. 2. Stage III congestive heart failure with elevated BNP. 3. Slowly decreasing edema, on furosemide with bilateral pleural effusions with no evidence of infec tion. 4. Persistent cough most likely due to congestive heart failure, history of pneumonia, but no eviden ce at this time. PLAN: 1. Continue furosemide 40 mg twice daily. 2. Continue PT, OT. 3. Continue to monitor renal function. 4. Continue handheld nebulizers and incentive spirometry.
[2017-05-19 05:28] LABS: INR-International Normal Ratio 2.6; Prothrombin Time 28.5 SEC (12.0-14.7)
[2017-05-19] MEDS: Budesonide 0.5 MG/2 ML NEB NEB SCH ×2 (06:17→17:34)
[2017-05-19] MEDS: Levothyroxine Sodium 25 MCG TAB PO SCH (06:17)
[2017-05-19] MEDS: Folic Acid 1 MG TAB PO SCH (08:37)
[2017-05-19] MEDS: Cyanocobalamin (Vitamin B-12) 1,000 MCG TAB PO SCH (08:37)
[2017-05-19] MEDS: Vancomycin HCl 125 MG Capsule PO SCH ×2 (08:37→20:59)
[2017-05-19] MEDS: Cefdinir 300 MG CAP PO SCH (08:37)
[2017-05-19] MEDS: guaiFENesin ER 600 MG TAB PO SCH ×2 (08:38→20:59)
[2017-05-19] MEDS: Metoprolol Tartrate 50 MG TAB PO SCH ×2 (08:38→20:59)
[2017-05-19] MEDS: Furosemide 40 MG TAB PO SCH ×2 (08:38→15:52)
[2017-05-19] MEDS: Tamsulosin HCl 0.4 MG CAP PO SCH (08:38)
[2017-05-19] MEDS ORDERED: Furosemide 40 MG TAB PO SCH ×2 (11:00→11:15)
[2017-05-19] MEDS ORDERED: Acetaminophen 500 MG TAB PO PRN (11:04)
--- NOTE | 2017-05-19 11:50 | PRG ---
DATE OF SERVICE: 05/19/2017 SUBJECTIVE: The patient sitting up in the bed, eating breakfast. States he feels better with decrea sing dyspnea, cough, and edema of his legs and he is feeling stronger. OBJECTIVE: Shows his temperature is 95.6, pulse 84, respirations 18, O2 sats 97% on 2 liters. The p atient states that he is occasionally getting off from this. Blood pressure is 98/55. Lungs show de creased breath sounds in the bases with a few crackles above this. Cardiac examination shows irregul jono irregular rhythm. Skin and extremities show 2+ edema to the knees. Abdomen is soft and nontend er. LABORATORY DATA: CT scan done yesterday showed bilateral effusions with bilateral lung infiltrates a nd cardiomegaly. White count yesterday, however, was normal at 7900 with hematocrit of 33, hemoglobi n 10, normal differential. Sodium was 137, potassium 3.6, chloride 96, bicarbonate 34, BUN 23, creat inine 1.09. BNP is still elevated at 847. Sputum culture is preliminary, showing gram-negative rods and few gram-positive cocci, awaiting final result. PT/INR is therapeutic at 28 with an INR of 2.6. ASSESSMENT: 1. Atrial fibrillation with stable rate control and anticoagulation. 2. Diastolic heart failure, persistently elevated BNP and persistent bilateral effusions on furosemi de, but with normal renal function. So, we will increase furosemide from 40 twice daily to 40 three times daily. 3. Cellulitis, resolved of the legs. 4. Possible recurrent gram-negative hospital-acquired pneumonia, on cefdinir, and we will await resu lts and may need IV antibiotics. 5. Improving deconditioning. We will continue PT/OT.
[2017-05-19] MEDS ORDERED: Cephalexin 250 MG CAP PO SCH (15:00)
[2017-05-19] MEDS: Warfarin Sodium 5 MG TAB PO SCH (17:33)
[2017-05-19] MEDS: Melatonin 3 MG TAB PO SCH (20:59)
[2017-05-19] MEDS ORDERED: Sulfameth/Trimethoprim DS 800-160mg TAB PO SCH (21:00)
[2017-05-20 05:16] LABS: INR-International Normal Ratio 2.7; Prothrombin Time 29.7 SEC (12.0-14.7)
[2017-05-20] MEDS: Budesonide 0.5 MG/2 ML NEB NEB SCH ×2 (06:30→18:05)
[2017-05-20] MEDS: Levothyroxine Sodium 25 MCG TAB PO SCH (06:30)
[2017-05-20] MEDS: guaiFENesin ER 600 MG TAB PO SCH ×2 (09:01→21:10)
[2017-05-20] MEDS: Metoprolol Tartrate 50 MG TAB PO SCH ×2 (09:01→21:10)
[2017-05-20] MEDS: Furosemide 40 MG TAB PO SCH ×2 (09:01→13:11)
[2017-05-20] MEDS: Folic Acid 1 MG TAB PO SCH (09:02)
[2017-05-20] MEDS: Vancomycin HCl 125 MG Capsule PO SCH ×2 (09:02→21:10)
[2017-05-20] MEDS: Tamsulosin HCl 0.4 MG CAP PO SCH (09:02)
[2017-05-20] MEDS: Cyanocobalamin (Vitamin B-12) 1,000 MCG TAB PO SCH (09:02)
[2017-05-20] MEDS: Artificial Tear Sol 15 ML BOT EA EYE PRN (09:03)
--- NOTE | 2017-05-20 13:34 | PRG ---
DATE OF SERVICE: 05/20/2017 SUBJECTIVE: Mr. Jimenez is up in his chair. His family member is with him. He denies any concerns. He states that the redness in his thigh seems to be slightly better. Denies any shortness of breath. He states that increase in Lasix seems to be helping. OBJECTIVE: VITAL SIGNS: He is afebrile, heart rate is 81, respirations 20, oxygen saturation is 98% on 2 liters, blood pressure is 101/58. CARDIOVASCULAR: S1, S2 plus. RESPIRATORY: Normal vesicular breath sounds with occasional crackles. ABDOMEN: Soft, nontender, bowel sounds heard in all quadrants. EXTREMITIES: Chronic bilateral lymphedema, mild erythema in the right thigh. LABORATORY VALUES: Sputum culture is growing E. coli and it is sensitive to cefoxitin, amikacin, gentamicin and meropenem. Looks like this is ESBL positive. IMPRESSION: 1. Resolved cellulitis, right lower extremity, but still has significant lymphedema. 2. Atrial fibrillation, rate controlled. 3. Chronic diastolic congestive heart failure. 4. Escherichia coli pneumonitis. PLAN: 1. We will start him on Merrem. 2. Continue physical therapy and wound care. 3. His INR is 2.7, continue current warfarin dose 4. Discussed with the patient in detail and all questions answered. MTDD
[2017-05-20] MEDS ORDERED: Meropenem 1 GM in Sodium Chloride 0.9% 100 ML IVPB SCH (14:45)
[2017-05-20] MEDS: Warfarin Sodium 5 MG TAB PO SCH (16:53)
[2017-05-20] MEDS: Meropenem 1 GM in Sodium Chloride 0.9% 100 ML IVPB SCH (21:10)
[2017-05-20] MEDS: Melatonin 3 MG TAB PO SCH (21:10)
[2017-05-21 05:51] LABS: INR-International Normal Ratio 3.2; Prothrombin Time 33.9 SEC (12.0-14.7)
[2017-05-21] MEDS: Budesonide 0.5 MG/2 ML NEB NEB SCH ×2 (06:25→17:47)
[2017-05-21] MEDS: Levothyroxine Sodium 25 MCG TAB PO SCH (06:28)
[2017-05-21] MEDS: Meropenem 1 GM in Sodium Chloride 0.9% 100 ML IVPB SCH ×3 (06:28→20:26)
[2017-05-21] MEDS: Tamsulosin HCl 0.4 MG CAP PO SCH (08:16)
[2017-05-21] MEDS: guaiFENesin ER 600 MG TAB PO SCH ×2 (08:16→20:25)
[2017-05-21] MEDS: Metoprolol Tartrate 50 MG TAB PO SCH ×2 (08:16→20:25)
[2017-05-21] MEDS: Vancomycin HCl 125 MG Capsule PO SCH ×2 (08:16→20:24)
[2017-05-21] MEDS: Cyanocobalamin (Vitamin B-12) 1,000 MCG TAB PO SCH (08:16)
[2017-05-21] MEDS: Folic Acid 1 MG TAB PO SCH (08:17)
[2017-05-21] MEDS: Furosemide 40 MG TAB PO SCH ×2 (08:17→13:32)
[2017-05-21] MEDS ORDERED: Warfarin Sodium 5 MG TAB PO SCH ×2 (09:45→17:00)
--- NOTE | 2017-05-21 09:58 | PRG ---
DATE OF SERVICE: 05/21/2017 SUBJECTIVE: Mr. Jimneez is doing well. Denies any complaints, resting comfortably, ambulating in th e hallways. He did not have any issues with the Merrem. We will continue to monitor since he has a documented allergy to PENICILLIN, but that happened about 60 years ago. OBJECTIVE: GENERAL: Weight, he has gained about 8 pounds in the last 5 days even though his Lasix was increased . VITAL SIGNS: He is afebrile, heart rate 86, respirations 20, oxygen saturation 98%, blood pressure 9 4/56. CARDIOVASCULAR: S1, S2 plus. RESPIRATORY: Normal vesicular breath sounds. ABDOMEN: Soft, nontender, bowel sounds heard in all quadrants. EXTREMITIES: Without cyanosis or clubbing. Bilateral lymphedema. Cellulitis has resolved. IMPRESSION: 1. Resolved cellulitis, lower extremity. 2. Chronic lymphedema. 3. Chronic diastolic congestive heart failure with weight gain and increased BNP. 4. E. coli pneumonia. PLAN: 1. Continue Merrem. 2. Add Zaroxolyn 2.5 mg 30 minutes before his afternoon Lasix. 3. Continue physical therapy. 4. Hold warfarin. His INR is 3.2 today. 5. Continue heart healthy diet. 6. Recheck laboratory values in the morning. 7. I discussed with the patient in detail and all questions answered. No family at bedside.
[2017-05-21] MEDS ORDERED: Metolazone 2.5 MG TAB PO SCH (13:30)
[2017-05-21] MEDS: Metolazone 5 MG TAB PO SCH (13:31)
[2017-05-21] MEDS: Melatonin 3 MG TAB PO SCH (20:25)
[2017-05-22 05:33] LABS: INR-International Normal Ratio 3.7; Prothrombin Time 38.3 SEC (12.0-14.7)
[2017-05-22 05:41] LABS: Anion Gap 16 mmol/L (10-20); BUN (Urea Nitrogen) 22 mg/dL (8.4-25.7); Calc. Creatinine Clearance 52 mL/min (70-130); Calcium 8.9 mg/dL (7.8-10.44); Carbon Dioxide 31 mmol/L (23-31); Chloride 95 mmol/L (98-107); Estimated GFR-MDRD 58; Glucose 84 mg/dL (83-110); Potassium 3.6 mmol/L (3.5-5.1); Sodium 138 mmol/L (136-145)
[2017-05-22 05:43] LABS: #Basophils 0.1 thou/uL (0.0-0.2); #Eosinphils 0.1 thou/uL (0.0-0.7); #Lymphocytes 1.7 thou/uL (1.20-3.40); #Monocytes 1.2 thou/uL (0.11-0.59); #Neutrophils 5.7 thou/uL (1.40-6.50); %Eosinophils 1.1 % (0.0-10.0); %Lymphocytes 19.1 % (21.0-51.0); %Monocytes 13.8 % (0.0-10.0); Hemoglobin 12.1 g/dL (14.0-18.0); Mean Corpuscular HGB CONC 31.8 g/dL (32.0-36.0); Mean Corpuscular Hemoglobin 30.4 pg (27.0-31.0); Mean Corpuscular Volume 95.5 fl (80.0-94.0); Mean Platelet Volume 9.4 fL (7.4-10.4); Platelet Count 179 thou/uL (130-400); RBC Distribution Width 15.2 % (11.5-14.5); Red Blood Cell (RBC) Count 3.98 mill/uL (4.70-6.10); White Blood Cell (WBC) Count 8.8 thou/uL (4.8-10.8)
[2017-05-22] MEDS: Levothyroxine Sodium 25 MCG TAB PO SCH (05:54)
[2017-05-22] MEDS: Meropenem 1 GM in Sodium Chloride 0.9% 100 ML IVPB SCH ×3 (05:54→21:41)
[2017-05-22] MEDS: Budesonide 0.5 MG/2 ML NEB NEB SCH ×2 (05:55→18:52)
[2017-05-22] MEDS: Furosemide 40 MG TAB PO SCH ×2 (08:49→14:12)
[2017-05-22] MEDS: Cyanocobalamin (Vitamin B-12) 1,000 MCG TAB PO SCH (08:49)
[2017-05-22] MEDS: guaiFENesin ER 600 MG TAB PO SCH ×2 (08:50→21:42)
[2017-05-22] MEDS: Tamsulosin HCl 0.4 MG CAP PO SCH (08:50)
[2017-05-22] MEDS: Folic Acid 1 MG TAB PO SCH (08:50)
[2017-05-22] MEDS: Metoprolol Tartrate 50 MG TAB PO SCH ×2 (08:50→21:42)
[2017-05-22] MEDS: Vancomycin HCl 125 MG Capsule PO SCH ×2 (08:50→21:42)
[2017-05-22] MEDS: Metolazone 5 MG TAB PO SCH (13:30)
--- NOTE | 2017-05-22 15:35 | PRG ---
DATE OF SERVICE: 05/22/2017 SUBJECTIVE: Mr. Jimenez is doing well. Denies any complaints, resting comfortably. He states that the metolazone is really making him void a lot. His family is in the room. OBJECTIVE: VITAL SIGNS: He is afebrile, heart rate 73, respirations 18, oxygen saturation 100% on 2 liters, blo od pressure is 94/53. I's and O's shows negative 2000 mL in 24 hours. CARDIOVASCULAR SYSTEM: S1, S2 plus. RESPIRATORY SYSTEM: Normal vesicular breath sounds. ABDOMEN: Soft, nontender, bowel sounds heard in all quadrants. EXTREMITIES: Without cyanosis or clubbing. Chronic lymphedema. CENTRAL NERVOUS SYSTEM: Improving weakness. LABORATORY DATA: White count is 8.8, hemoglobin and hematocrit is 12.1 and 38. Chemistry shows sodi um of 138, potassium 3.6. BUN and creatinine 22 and 1.2. BNP is down to 512. IMPRESSION: 1. Escherichia coli pneumonitis. 2. Chronic lymphedema. 3. Resolved cellulitis. 4. Improving deconditioning. 5. Chronic diastolic congestive heart failure, improving. PLAN: 1. Continue current medications. 2. Nutritional support. 3. DVT and stress ulcer prophylaxis. 4. Decubitus precautions. 5. Routine laboratory values. 6. Discussed with patient and family in detail and all questions answered.
[2017-05-22] MEDS: Melatonin 3 MG TAB PO SCH (21:41)
[2017-05-23 05:25] LABS: INR-International Normal Ratio 3.2; Prothrombin Time 34.2 SEC (12.0-14.7)
[2017-05-23] MEDS: Budesonide 0.5 MG/2 ML NEB NEB SCH ×2 (05:49→20:30)
[2017-05-23] MEDS: Meropenem 1 GM in Sodium Chloride 0.9% 100 ML IVPB SCH ×3 (05:50→20:31)
[2017-05-23] MEDS: Levothyroxine Sodium 25 MCG TAB PO SCH (05:51)
[2017-05-23] MEDS: Furosemide 40 MG TAB PO SCH ×2 (08:31→14:07)
[2017-05-23] MEDS: Folic Acid 1 MG TAB PO SCH (08:31)
[2017-05-23] MEDS: Tamsulosin HCl 0.4 MG CAP PO SCH (08:31)
[2017-05-23] MEDS: Metoprolol Tartrate 50 MG TAB PO SCH ×2 (08:31→20:31)
[2017-05-23] MEDS: Vancomycin HCl 125 MG Capsule PO SCH ×2 (08:31→20:31)
[2017-05-23] MEDS: Cyanocobalamin (Vitamin B-12) 1,000 MCG TAB PO SCH (08:31)
[2017-05-23] MEDS: guaiFENesin ER 600 MG TAB PO SCH ×2 (08:32→20:31)
--- NOTE | 2017-05-23 12:50 | PRG ---
DATE OF SERVICE: 05/23/2017 SUBJECTIVE: Mr. Shahid is doing well. Denies any complaints, resting comfortably, tolerating his med ications. OBJECTIVE: VITAL SIGNS: He is afebrile, heart rate 72, respirations 18, oxygen saturation 96% on 3 liters, bloo d pressure is 94/55. I's and O's not documented, but his weight is down 4 pounds. CARDIOVASCULAR: S1, S2 plus. RESPIRATORY: Normal vesicular breath sounds. ABDOMEN: Soft, nontender, bowel sounds heard in all quadrants. EXTREMITIES: Without cyanosis or clubbing. Chronic lymphedema, but it seems to be improving accordi ng to patient. He is tolerating his Merrem and denies any rash or signs and symptoms of allergies to it. IMPRESSION: 1. Escherichia coli pneumonitis. 2. Chronic lymphedema with resolved cellulitis, improving. 3. Chronic diastolic congestive heart failure. 4. Improving deconditioning. PLAN: 1. Continue Merrem for a total of 10 days. 2. Continue Zaroxolyn. 3. Recheck BNP and BMP in the morning. 4. Continue to monitor I's and O's and daily weights. 5. Physical therapy. 6. Lymphedema care. 7. Nutritional support. 8. DVT and stress ulcer prophylaxis. 9. Discussed with patient in detail and all questions answered. 10. No family at bedside.
[2017-05-23] MEDS: Metolazone 5 MG TAB PO SCH (14:07)
[2017-05-23] MEDS: Melatonin 3 MG TAB PO SCH (20:31)
[2017-05-24 05:46] LABS: INR-International Normal Ratio 2.6; Prothrombin Time 29.1 SEC (12.0-14.7)
[2017-05-24 05:49] LABS: #Basophils 0.1 thou/uL (0.0-0.2); #Eosinphils 0.2 thou/uL (0.0-0.7); #Lymphocytes 1.7 thou/uL (1.20-3.40); #Monocytes 1.2 thou/uL (0.11-0.59); #Neutrophils 6.2 thou/uL (1.40-6.50); %Basophils 1.2 % (0.0-1.0); %Lymphocytes 18.3 % (21.0-51.0); %Neutrophils 65.5 % (42.0-75.0); Mean Corpuscular HGB CONC 32.5 g/dL (32.0-36.0); Mean Corpuscular Hemoglobin 30.9 pg (27.0-31.0); Mean Platelet Volume 8.9 fL (7.4-10.4); Platelet Count 172 thou/uL (130-400); RBC Distribution Width 15.7 % (11.5-14.5); White Blood Cell (WBC) Count 9.4 thou/uL (4.8-10.8)
[2017-05-24 05:53] LABS: Anion Gap 15 mmol/L (10-20); BUN (Urea Nitrogen) 28 mg/dL (8.4-25.7); Calc. Creatinine Clearance 43 mL/min (70-130); Calcium 9.5 mg/dL (7.8-10.44); Carbon Dioxide 35 mmol/L (23-31); Chloride 90 mmol/L (98-107); Estimated GFR-MDRD 48; Glucose 99 mg/dL (83-110); Potassium 3.4 mmol/L (3.5-5.1); Sodium 137 mmol/L (136-145)
[2017-05-24] MEDS: Budesonide 0.5 MG/2 ML NEB NEB SCH ×2 (06:01→17:45)
[2017-05-24] MEDS: Levothyroxine Sodium 25 MCG TAB PO SCH (06:02)
[2017-05-24] MEDS: Meropenem 1 GM in Sodium Chloride 0.9% 100 ML IVPB SCH ×3 (06:02→21:13)
[2017-05-24] MEDS ORDERED: Sodium Chloride 0.9% 10 ML ONE ×2 (06:55→13:41)
[2017-05-24] MEDS ORDERED: Furosemide 40 MG TAB ONE (08:09)
--- NOTE | 2017-05-24 08:26 | PRG ---
DATE OF SERVICE: 05/24/2017 SUBJECTIVE: The patient is sitting up in the chair eating breakfast, feels well with only complaints of persistent diuresis and inability to sleep at night. He has decreasing dyspnea on exertion. No chest pain, palpitations, no nausea, vomiting, no pain in the legs and no diarrhea. His vancomycin h as stopped today as his treatment for Clostridium difficile colitis and has resolved and finished. OBJECTIVE: VITAL SIGNS: Blood pressure is 100/62, pulse is 88, respirations 18, O2 sats 94% on 2 liters. LUNGS: Lungs are clear. CARDIAC: Cardiac examination displays irregular rhythm. No gallops or murmurs. ABDOMEN: Soft and nontender. SKIN AND EXTREMITIES: Skin and extremities show 2+ edema, but markedly less tight and indurated. LABORATORY: Today shows white count 9400, hematocrit 39, hemoglobin 13. PT/INR is 29 and 2.6 on war farin 5 mg daily. BNP is down to 460 from high of 847, sodium 137, potassium down 3.4, chloride 90, bicarbonate 35, BUN 28, creatinine 1.4. The warfarin has been held for the last 3 days because of a PT/INR of greater than 3. ASSESSMENT: 1. Atrial fibrillation, stable rate control with variable anticoagulation. We will start back on wa rfarin 4 mg daily today 2. Congestive heart failure, diastolic with improving edema on furosemide and metolazone and will co ntinue. 3. Hypokalemia secondary to diuretics. We will start KCl 20 mEq daily. 4. Resolving pneumonia, possibly due to Escherichia coli on meropenem. Finish 1 week of antibiotics this week, his white count is normal and lungs appear to be clear. 5. Deconditioning, improving with PT and will continue. 6. Chronic obstructive pulmonary disease and hypoxemia. New in onset with this admission. We will decrease oxygen to 1 liter daily and monitor and attempt to wean off and continue on handheld nebuliz ers.
[2017-05-24] MEDS: Furosemide 40 MG TAB PO SCH ×2 (08:55→13:50)
[2017-05-24] MEDS: Metoprolol Tartrate 50 MG TAB PO SCH ×2 (08:56→20:44)
[2017-05-24] MEDS: guaiFENesin ER 600 MG TAB PO SCH ×2 (08:56→20:44)
[2017-05-24] MEDS: Folic Acid 1 MG TAB PO SCH (08:56)
[2017-05-24] MEDS: Tamsulosin HCl 0.4 MG CAP PO SCH (08:56)
[2017-05-24] MEDS: Cyanocobalamin (Vitamin B-12) 1,000 MCG TAB PO SCH (08:56)
[2017-05-24] MEDS: Saccharomyces boulardii 250 MG CAP PO SCH (08:59)
[2017-05-24] MEDS: Metolazone 5 MG TAB PO SCH (11:33)
[2017-05-24] MEDS: Warfarin Sodium 2 MG TAB PO SCH (16:54)
[2017-05-24] MEDS: Warfarin Sodium 5 MG TAB PO SCH ×2 (17:12→17:13)
[2017-05-24] MEDS ORDERED: Sodium Chloride 0.9% 20 ML ONE (20:37)
[2017-05-24] MEDS: Melatonin 3 MG TAB PO SCH (20:44)
[2017-05-25 05:44] LABS: INR-International Normal Ratio 2.3; Prothrombin Time 25.9 SEC (12.0-14.7)
[2017-05-25] MEDS: Budesonide 0.5 MG/2 ML NEB NEB SCH ×2 (05:54→17:56)
[2017-05-25] MEDS: Levothyroxine Sodium 25 MCG TAB PO SCH (05:54)
[2017-05-25] MEDS: Meropenem 1 GM in Sodium Chloride 0.9% 100 ML IVPB SCH ×3 (05:54→21:21)
[2017-05-25 07:22] LABS: Anion Gap 17 mmol/L (10-20); BUN (Urea Nitrogen) 31 mg/dL (8.4-25.7); Calc. Creatinine Clearance 48 mL/min (70-130); Calcium 9.3 mg/dL (7.8-10.44); Carbon Dioxide 36 mmol/L (23-31); Chloride 88 mmol/L (98-107); Estimated GFR-MDRD 60; Glucose 93 mg/dL (83-110); Potassium 3.3 mmol/L (3.5-5.1); Sodium 138 mmol/L (136-145)
[2017-05-25] MEDS: Saccharomyces boulardii 250 MG CAP PO SCH (07:48)
[2017-05-25] MEDS: Tamsulosin HCl 0.4 MG CAP PO SCH (07:48)
[2017-05-25] MEDS: Metoprolol Tartrate 50 MG TAB PO SCH ×2 (07:49→21:22)
[2017-05-25] MEDS: Cyanocobalamin (Vitamin B-12) 1,000 MCG TAB PO SCH (07:49)
[2017-05-25] MEDS: Furosemide 20 MG TAB PO SCH ×2 (07:49→13:27)
[2017-05-25] MEDS: Folic Acid 1 MG TAB PO SCH (07:49)
[2017-05-25] MEDS: guaiFENesin ER 600 MG TAB PO SCH ×2 (07:49→21:22)
[2017-05-25] MEDS: Metolazone 5 MG TAB PO SCH (11:12)
[2017-05-25] MEDS: Warfarin Sodium 2 MG TAB PO SCH (17:19)
--- NOTE | 2017-05-25 19:46 | PRG ---
DATE OF SERVICE: 05/25/2017 SUBJECTIVE: The patient feels better, increased strength, decreased dyspnea, decreasing edema. No n ausea or vomiting. OBJECTIVE: VITAL SIGNS: Blood pressure is 88/53, respirations 22, O2 sats 98% on 1 liter, temperature 97.1. LUNGS: Clear with few decreased breath sounds in the bases. CARDIAC: Examination shows irregular rhythm. ABDOMEN: Soft and nontender. SKIN AND EXTREMITIES: Showed 2+ edema, but no induration, no erythema or tenderness. LABORATORY DATA: Shows white count 9400, hematocrit 39, hemoglobin 13. BNP is down to 411. Sodium is 138, potassium 3.4, chloride 88, bicarbonate is up to 36, BUN 31, creatinine down to 1.18. ASSESSMENT: 1. Slowly improving congestive heart failure, on low dose furosemide and metolazone. 2. Persistent hypokalemia, on KCl 20 mEq daily. 3. Resolving pneumonia, on meropenem with possible Escherichia coli infection. 4. Deconditioning, improving greatly. 5. Atrial fibrillation with stable rate control and anticoagulation on warfarin 4 daily. 6. Chronic obstructive pulmonary disease, hypoxemia. On half liter of oxygen today with O2 sats 98% . PLAN: Discontinue oxygen in a.m. and increase KCl 20 mEq twice daily. Continue furosemide, metolazo ne for one more day as the renal function is improving. Continue warfarin 4 mg daily. Continue PT a nd OT. I will begin to make arrangements for discharge next week.
[2017-05-25] MEDS: Melatonin 3 MG TAB PO SCH (21:21)
[2017-05-26 05:25] LABS: INR-International Normal Ratio 2.5; Prothrombin Time 27.8 SEC (12.0-14.7)
[2017-05-26] MEDS: Budesonide 0.5 MG/2 ML NEB NEB SCH ×2 (06:12→17:34)
[2017-05-26] MEDS: Meropenem 1 GM in Sodium Chloride 0.9% 100 ML IVPB SCH ×3 (06:13→21:16)
[2017-05-26] MEDS: Levothyroxine Sodium 25 MCG TAB PO SCH (06:13)
[2017-05-26 07:49] LABS: Anion Gap 15 mmol/L (10-20); BUN (Urea Nitrogen) 33 mg/dL (8.4-25.7); Calc. Creatinine Clearance 46 mL/min (70-130); Calcium 9.2 mg/dL (7.8-10.44); Carbon Dioxide 34 mmol/L (23-31); Chloride 92 mmol/L (98-107); Estimated GFR-MDRD 57; Glucose 111 mg/dL (83-110); Potassium 3.7 mmol/L (3.5-5.1); Sodium 137 mmol/L (136-145)
[2017-05-26] MEDS: Tamsulosin HCl 0.4 MG CAP PO SCH (08:31)
[2017-05-26] MEDS: Metoprolol Tartrate 50 MG TAB PO SCH ×2 (08:31→20:38)
[2017-05-26] MEDS: Folic Acid 1 MG TAB PO SCH (08:31)
[2017-05-26] MEDS: guaiFENesin ER 600 MG TAB PO SCH ×2 (08:31→20:38)
[2017-05-26] MEDS: Saccharomyces boulardii 250 MG CAP PO SCH (08:31)
[2017-05-26] MEDS: Cyanocobalamin (Vitamin B-12) 1,000 MCG TAB PO SCH (08:31)
[2017-05-26] MEDS: Furosemide 20 MG TAB PO SCH ×2 (08:31→14:31)
[2017-05-26] MEDS: Metolazone 5 MG TAB PO SCH (11:05)
[2017-05-26] MEDS: Warfarin Sodium 2 MG TAB PO SCH (17:33)
[2017-05-26] MEDS: Melatonin 3 MG TAB PO SCH (20:38)
[2017-05-27 05:24] LABS: INR-International Normal Ratio 2.5; Prothrombin Time 27.9 SEC (12.0-14.7)
[2017-05-27] MEDS: Meropenem 1 GM in Sodium Chloride 0.9% 100 ML IVPB SCH ×3 (06:05→21:22)
[2017-05-27] MEDS: Budesonide 0.5 MG/2 ML NEB NEB SCH ×2 (06:06→17:39)
[2017-05-27] MEDS: Levothyroxine Sodium 25 MCG TAB PO SCH (06:09)
[2017-05-27] MEDS ORDERED: Sodium Chloride 0.9% 10 ML ONE ×2 (06:18→15:21)
--- NOTE | 2017-05-27 07:11 | PRG ---
DATE OF SERVICE: 05/26/2017 SUBJECTIVE: The patient feels much better. He is in the bathroom with no difficulty, walking in the gunn with therapy, having decreasing swelling in his legs and decreasing shortness of breath, is hav ing increasing appetite. OBJECTIVE: VITAL SIGNS: Shows his blood pressure to be a 95/60, pulse 104, O2 sats 95% on room air, temperature 96, pulse 95, respirations 18. LUNGS: Lungs show only decreased breath sounds in the bases. CARDIAC: Cardiac examination shows an irregular rhythm. ABDOMEN: Abdomen is soft and nontender. SKIN AND EXTREMITIES: Skin and extremities show persistent but decreasing edema of the legs, wrapped in compression dressings with no tenderness or erythema. Weight is 145 pounds compared to 157 pounds last week. ASSESSMENT: 1. Resolved cellulitis of the legs. 2. Resolving congestive heart failure on furosemide with stable chronic kidney disease stage 3. 3. Improving deconditioning. PLAN: Continue PT, OT. Continue off oxygen, continue diuresis with oral furosemide, IV meropenem fo r E. coli bronchitis to finish tomorrow. Zaroxolyn has been given daily to finished this weekend. C ontinue metolazone for several more days. Repeat base met profile in the a.m. Discuss discharge margarita nning with the patient and case management.
--- NOTE | 2017-05-27 07:23 | PRG ---
DATE OF SERVICE: 05/27/2017 SUBJECTIVE: The patient feels much better, sitting up in the chair, watching TV, states that he feel s he is getting stronger with this therapy. He is complaining of some soreness in his muscles with e xercise. Denying any chest pain or increased shortness of breath. Has been taken off his oxygen. OBJECTIVE: VITAL SIGNS: His pulse is 88, respirations 18, O2 sats 96% on room air, blood pressure is 90/60. LUNGS: Show decreased breath sounds in the bases. CARDIAC: Examination shows an irregular regular rhythm. ABDOMEN: Soft, nontender. SKIN AND EXTREMITIES: Show persistent 1-2+ edema, but much less indurated and no edema in thigh. LABORATORY DATA: PT/INR is stable at 27.9 and 2.5. ASSESSMENT: 1. Stable atrial fibrillation with rate control and anticoagulation. 2. Resolving chronic obstructive pulmonary disease with exacerbation with possible E. coli bronchiti s on meropenem until tonight. 3. Severe deconditioning, improving greatly, but still very weak, although walking 200 feet with ass istance. 4. Congestive heart failure, improving with furosemide and Zaroxolyn orally, slowly decreasing weigh t and edema. 5. Chronic kidney disease stage 3, stable on diuretics. 6. Cellulitis of the legs, resolved. PLAN: 1. Continue physical therapy, occupational therapy. Continue oral diuresis, furosemide, metolazone. 2. Finish meropenem today. 3. Continue rate control and anticoagulation for atrial fibrillation.
[2017-05-27] MEDS: Furosemide 20 MG TAB PO SCH ×2 (08:55→14:30)
[2017-05-27] MEDS: Saccharomyces boulardii 250 MG CAP PO SCH (08:55)
[2017-05-27] MEDS: Metoprolol Tartrate 50 MG TAB PO SCH ×2 (08:55→21:25)
[2017-05-27] MEDS: guaiFENesin ER 600 MG TAB PO SCH ×2 (08:56→21:23)
[2017-05-27] MEDS: Tamsulosin HCl 0.4 MG CAP PO SCH (08:56)
[2017-05-27] MEDS: Folic Acid 1 MG TAB PO SCH (08:56)
[2017-05-27] MEDS: Cyanocobalamin (Vitamin B-12) 1,000 MCG TAB PO SCH (08:56)
[2017-05-27] MEDS: Metolazone 5 MG TAB PO SCH (14:34)
[2017-05-27] MEDS: Warfarin Sodium 2 MG TAB PO SCH (17:38)
[2017-05-27] MEDS: Melatonin 3 MG TAB PO SCH (21:23)
[2017-05-28 05:17] LABS: INR-International Normal Ratio 2.7; Prothrombin Time 29.6 SEC (12.0-14.7)
[2017-05-28] MEDS: Levothyroxine Sodium 25 MCG TAB PO SCH (05:34)
[2017-05-28] MEDS: Budesonide 0.5 MG/2 ML NEB NEB SCH ×2 (05:34→21:25)
[2017-05-28 05:56] LABS: BUN (Urea Nitrogen) 34 mg/dL (8.4-25.7); Calc. Creatinine Clearance 47 mL/min (70-130); Calcium 8.8 mg/dL (7.8-10.44); Estimated GFR-MDRD 60; Glucose 92 mg/dL (83-110)
[2017-05-28 06:07] LABS: Carbon Dioxide 34 mmol/L (23-31)
[2017-05-28 06:08] LABS: Anion Gap 17 mmol/L (10-20); Chloride 92 mmol/L (98-107); Potassium 4.3 mmol/L (3.5-5.1); Sodium 139 mmol/L (136-145)
[2017-05-28] MEDS: Metoprolol Tartrate 50 MG TAB PO SCH ×2 (08:41→21:25)
[2017-05-28] MEDS: Tamsulosin HCl 0.4 MG CAP PO SCH (08:41)
[2017-05-28] MEDS: Cyanocobalamin (Vitamin B-12) 1,000 MCG TAB PO SCH (08:41)
[2017-05-28] MEDS: Saccharomyces boulardii 250 MG CAP PO SCH (08:41)
[2017-05-28] MEDS: Furosemide 20 MG TAB PO SCH ×2 (08:41→13:53)
[2017-05-28] MEDS: Folic Acid 1 MG TAB PO SCH (08:41)
[2017-05-28] MEDS: guaiFENesin ER 600 MG TAB PO SCH ×2 (08:41→21:25)
[2017-05-28] MEDS: Metolazone 5 MG TAB PO SCH (11:50)
[2017-05-28] MEDS: Warfarin Sodium 2 MG TAB PO SCH (19:34)
[2017-05-28] MEDS: Melatonin 3 MG TAB PO SCH (21:25)
[2017-05-29 05:46] LABS: INR-International Normal Ratio 2.8; Prothrombin Time 30.3 SEC (12.0-14.7)
[2017-05-29] MEDS: Levothyroxine Sodium 25 MCG TAB PO SCH (06:21)
[2017-05-29] MEDS: Budesonide 0.5 MG/2 ML NEB NEB SCH ×2 (06:22→18:43)
[2017-05-29] MEDS: Metoprolol Tartrate 50 MG TAB PO SCH ×2 (08:58→21:18)
[2017-05-29] MEDS: Tamsulosin HCl 0.4 MG CAP PO SCH (08:58)
[2017-05-29] MEDS: Folic Acid 1 MG TAB PO SCH (08:58)
[2017-05-29] MEDS: Saccharomyces boulardii 250 MG CAP PO SCH (08:58)
[2017-05-29] MEDS: guaiFENesin ER 600 MG TAB PO SCH ×2 (08:58→21:18)
[2017-05-29] MEDS: Cyanocobalamin (Vitamin B-12) 1,000 MCG TAB PO SCH (08:58)
[2017-05-29] MEDS: Furosemide 20 MG TAB PO SCH ×2 (08:58→13:11)
[2017-05-29] MEDS: Metolazone 5 MG TAB PO SCH (11:38)
[2017-05-29] MEDS: Warfarin Sodium 2 MG TAB PO SCH (17:31)
[2017-05-29] MEDS: Melatonin 3 MG TAB PO SCH (21:18)
--- NOTE | 2017-05-30 00:25 | PRG ---
DATE OF SERVICE: 05/29/2017 SUBJECTIVE: The patient feels well, walking up and down the halls, still having some edema, but is n ot completely restricting himself, but is having no problems with shortness of breath, cough or ortho pnea. He is planning on being discharged home next week and wishes home health. OBJECTIVE: VITAL SIGNS: Temperature is 96.4, pulse 92, respirations 20, O2 sats 98% on room air, blood pressure 114/66. LUNGS: Clear. CARDIAC: Shows an irregularly irregular rhythm. SKIN AND EXTREMITIES: Shows 3-4+ edema. INR is a slightly increased at 30 and 2.8 on warfarin 4 mg daily. ASSESSMENT: 1. Improving congestive heart failure with persistent edema and we will stress salt restriction and will restart metolazone and renal function appears to be improving. 2. Cardiorenal dysfunction, improving with diuresis and we will monitor closely. 3. Cellulitis of the legs, resolved. 4. Atrial fibrillation with rate control and anticoagulation. We will continue to monitor.
[2017-05-30] MEDS: Levothyroxine Sodium 25 MCG TAB PO SCH (06:11)
[2017-05-30] MEDS: Budesonide 0.5 MG/2 ML NEB NEB SCH ×2 (06:12→18:25)
[2017-05-30 06:29] LABS: INR-International Normal Ratio 2.7; Prothrombin Time 29.6 SEC (12.0-14.7)
[2017-05-30 06:48] LABS: Anion Gap 14 mmol/L (10-20); BUN (Urea Nitrogen) 35 mg/dL (8.4-25.7); Calc. Creatinine Clearance 50 mL/min (70-130); Calcium 8.9 mg/dL (7.8-10.44); Carbon Dioxide 33 mmol/L (23-31); Chloride 97 mmol/L (98-107); Estimated GFR-MDRD 63; Glucose 102 mg/dL (83-110); Potassium 3.7 mmol/L (3.5-5.1); Sodium 140 mmol/L (136-145)
[2017-05-30] MEDS ORDERED: Furosemide 20 MG TAB PO SCH (07:12)
[2017-05-30] MEDS: guaiFENesin ER 600 MG TAB PO SCH ×2 (08:27→21:48)
[2017-05-30] MEDS: Cyanocobalamin (Vitamin B-12) 1,000 MCG TAB PO SCH (08:27)
[2017-05-30] MEDS: Tamsulosin HCl 0.4 MG CAP PO SCH (08:27)
[2017-05-30] MEDS: Folic Acid 1 MG TAB PO SCH (08:27)
[2017-05-30] MEDS: Metoprolol Tartrate 50 MG TAB PO SCH ×3 (08:28→21:50)
[2017-05-30] MEDS: Saccharomyces boulardii 250 MG CAP PO SCH (08:28)
[2017-05-30] MEDS: Furosemide 40 MG TAB PO SCH ×2 (08:28→14:01)
--- NOTE | 2017-05-30 09:24 | PRG ---
DATE OF SERVICE: 05/30/2017 SUBJECTIVE: The patient is sitting up in the chair, feels well with only complaint of some mild inso mnia but no shortness of breath or chest pain. He is ready to do more therapy and is awaiting home s ituation to be stabilized and hopefully be discharged in the next several days. OBJECTIVE: VITAL SIGNS: Temperature 97.8, pulse 86 and irregular, respirations 19, O2 sats 99% on room air, blo od pressure 112/71. LUNGS: Clear. CARDIAC: Shows irregular rhythm. ABDOMEN: Soft, nontender. SKIN AND EXTREMITIES: Show persistent 2 to 3+ edema, but soft and nontender. LABORATORY DATA: Sodium 140, potassium 3.7, chloride 97, bicarbonate 33, BUN 35, creatinine improvin g to 1.13 on diuresis, persistent BNP elevation of 482. ASSESSMENT: 1. Resolved cellulitis of the legs. 2. Class 3 congestive heart failure with dyspnea on exertion, persistent peripheral edema, on furose mide and metolazone with stable renal function and improving exercise tolerance. 3. Resolved Escherichia coli bronchitis. 4. Stable atrial fibrillation with rate control and anticoagulation. PLAN: Increase furosemide 40 twice daily, discontinue metolazone, repeat base met profile in 2 days. Continue PT/OT.
[2017-05-30] MEDS: Warfarin Sodium 2 MG TAB PO SCH (17:44)
[2017-05-30] MEDS: Melatonin 3 MG TAB PO SCH (21:48)
[2017-05-31 05:38] LABS: INR-International Normal Ratio 2.6; Prothrombin Time 28.9 SEC (12.0-14.7)
[2017-05-31] MEDS: Budesonide 0.5 MG/2 ML NEB NEB SCH (05:51)
[2017-05-31] MEDS: Levothyroxine Sodium 25 MCG TAB PO SCH (05:51)
[2017-05-31 05:58] VITALS: BMI 22.9
[2017-05-31 07:26] VITALS: BP 88/51; TEMP 96.8
[2017-05-31] MEDS: Furosemide 40 MG TAB PO SCH ×2 (08:57→13:58)
[2017-05-31] MEDS: Cyanocobalamin (Vitamin B-12) 1,000 MCG TAB PO SCH (08:57)
[2017-05-31] MEDS: guaiFENesin ER 600 MG TAB PO SCH (08:57)
[2017-05-31] MEDS: Folic Acid 1 MG TAB PO SCH (08:57)
[2017-05-31] MEDS: Tamsulosin HCl 0.4 MG CAP PO SCH (08:57)
[2017-05-31] MEDS: Metoprolol Tartrate 50 MG TAB PO SCH (08:57)
[2017-05-31] MEDS: Saccharomyces boulardii 250 MG CAP PO SCH (08:57)
--- NOTE | 2017-05-31 09:17 | PRG ---
DATE OF SERVICE: 05/31/2017 SUBJECTIVE: The patient feels well with only complaints mild soreness in his right calf, but no real erythema or drainage, has been walking in the gunn, doing his own dressings, sleeping stable amount at night with no chest pain, fever or chills. OBJECTIVE: VITAL SIGNS: Temperature is 96, pulse is 91, respirations 18, O2 sats 98% on room air, blood pressur e stable at 88/51. LABORATORY DATA: PT/INR stable at 28 and 2.6 on warfarin 4 mg daily. Renal function in fact stable at BUN 35, creatinine 1.13 on this dose of furosemide. ASSESSMENT: He is preparing for discharge. Hopefully today or tomorrow, when home situation can be arranged and therefore will be discharged whenever this is available and he will follow up with [facility] as an outpatient and with home health.
--- NOTE | 2017-06-07 12:07 | DIS ---
DATE OF ADMISSION: 04/30/2017 DATE OF DISCHARGE: 05/31/2017 FINAL DIAGNOSES: 1. Cellulitis of both legs, resolved. 2. History of Clostridium difficile, resolved, off treatment. 3. Chronic diastolic congestive heart failure, stable with biatrial enlargement, pulmonary hypertens ion. 4. Atrial fibrillation with rate control and anticoagulation. 5. Chronic obstructive pulmonary disease stable with ability to walk in the gunn with a walker with physical therapy. No oxygen. 6. Hypertension, well controlled. 7. Diabetes type 2, well controlled. 8. Hypothyroidism. 9. Benign prostatic hypertrophy. lower tract obstructive symptoms. HOSPITAL COURSE: The patient is a very pleasant 77-year-old white male with a history of COPD, diast olic heart failure, cellulitis of his legs, and chronic atrial fibrillation, who was admitted from [facility] and to finish his course of cellulitis of his legs. This was done with complete resolu tion of his cellulitis. He did continue to have significant edema secondary to diastolic heart failu re, requiring compression wraps. This was continued, started on PT, OT. Initially was oxygen depend ent and very weak, but slowly but surely improved, was weaned off his oxygen, was able to ambulate in the gunn with physical therapy. He was switched off IV Lasix initially to oral Lasix, slowly but mayorga rely improved with this, was able to tolerate this. His atrial fibrillation was rate controlled, ant icoagulation with warfarin. No complications. On discharge, his laboratory showed white count 9400, hematocrit 39, hemoglobin 13. BNP was elevated at 482. Sodium 140, potassium 3.7, chloride 97, bic arbonate 33, BUN 35, creatinine 1.13, glucose 102, calcium 8.9. PT was 28, INR 2.6. He will be foll owed up at home, family and home healthcare. His discharge medications included Tylenol as needed, f urosemide 40 mg twice daily, metoprolol 50 twice daily, KCl 20 mEq twice daily, tamsulosin 0.4 mg corinne ly, warfarin 4 mg daily, aspirin 81 daily, folic acid 1 mg daily, B12 at 1000 mcg daily, handheld neb ulizer with DuoNeb every 6 hours as needed, levothyroxine 25 mcg daily, melatonin 10 mg nightly, Pulm icort 0.5 mg twice daily, and oral Ellipta inhaler 1 puff daily.
== END 2017-05-31 15:35 | disposition home health service (06) | DRG 947 ==
LOC: NAV ACUTE 18:00
PROVIDERS: ADMIT Internal Medicine; ATTEND Internal Medicine
DX: R53.1 Weakness (principal); J15.5 Pneumonia due to Escherichia coli; J11.08 Influenza due to unidentified influenza virus with specified pneumonia; A04.71 Enterocolitis due to Clostridium difficile, recurrent; I13.0 Hypertensive heart and chronic kidney disease with heart failure and stage 1 through stage 4 chronic kidney disease, or unspecified chronic kidney disease; E11.22 Type 2 diabetes mellitus with diabetic chronic kidney disease; I50.32 Chronic diastolic (congestive) heart failure; I48.2 Chronic atrial fibrillation; L03.115 Cellulitis of right lower limb; N13.8 Other obstructive and reflux uropathy; J44.1 Chronic obstructive pulmonary disease with (acute) exacerbation; J44.0 Chronic obstructive pulmonary disease with (acute) lower respiratory infection; S80.811D Abrasion, right lower leg, subsequent encounter; N18.2 Chronic kidney disease, stage 2 (mild); Z79.01 Long term (current) use of anticoagulants; W54.8XXD Other contact with dog, subsequent encounter; E87.6 Hypokalemia; T50.2X5A Adverse effect of carbonic-anhydrase inhibitors, benzothiadiazides and other diuretics, initial encounter; Y95 Nosocomial condition; N40.1 Benign prostatic hyperplasia with lower urinary tract symptoms; G47.00 Insomnia, unspecified
CPT/HCPCS: 36415; 71045; 71046; 71250; 80048; 80053; 83880; 85007; 85025; 85027; 85610; 87070; 87077; 87186; 87205; 87804; 94640; A4216; J2185; J7050; J7620; J7626

== ENCOUNTER 2017-07-18 11:02 | Emergency (ER) | payer MEDICARE ==
[2017-07-18 11:57] LABS: #Basophils 0.1 thou/uL (0.0-0.2); #Eosinphils 0.2 thou/uL (0.0-0.7); #Lymphocytes 1.7 thou/uL (1.20-3.40); #Monocytes 0.9 thou/uL (0.11-0.59); #Neutrophils 6.1 thou/uL (1.40-6.50); %Eosinophils 1.7 % (0.0-10.0); %Lymphocytes 18.8 % (21.0-51.0); %Monocytes 10.3 % (0.0-10.0); %Neutrophils 68.1 % (42.0-75.0); Hemoglobin 11.6 g/dL (14.0-18.0); Mean Corpuscular HGB CONC 31.8 g/dL (32.0-36.0); Mean Corpuscular Hemoglobin 30.5 pg (27.0-31.0); Mean Corpuscular Volume 96.1 fl (80.0-94.0); Mean Platelet Volume 6.1 fL (7.4-10.4); Platelet Count 310 thou/uL (130-400); RBC Distribution Width 15.8 % (11.5-14.5); Red Blood Cell (RBC) Count 3.81 mill/uL (4.70-6.10)
[2017-07-18 12:04] LABS: INR-International Normal Ratio 2.6; PTT 44.8 SEC (22.9-36.1); Prothrombin Time 28.9 SEC (12.0-14.7)
[2017-07-18 12:14] LABS: ALT (SGPT) 12 U/L (8-55); AST (SGOT) 31 U/L (5-34); Albumin 3.2 g/dL (3.4-4.8); Alkaline Phosphatase 125 U/L (40-150); Anion Gap 17 mmol/L (10-20); BUN (Urea Nitrogen) 32 mg/dL (8.4-25.7); Bilirubin, Total 0.9 mg/dL (0.2-1.2); Calc. Creatinine Clearance 0 mL/min (70-130); Calcium 9.3 mg/dL (7.8-10.44); Carbon Dioxide 27 mmol/L (23-31); Chloride 98 mmol/L (98-107); Estimated GFR-MDRD 33; Globulin 3.4 g/dL (2.4-3.5); Glucose 90 mg/dL (83-110); Magnesium 2.1 mg/dL (1.6-2.6); Phosphorus 3.8 mg/dL (2.3-4.7); Protein, Total 6.6 g/dL (5.8-8.1); Sodium 137 mmol/L (136-145)
[2017-07-18 12:15] LABS: CKMB 2.1 ng/mL (0-6.6); Troponin I Less than 0.010 ng/mL (< 0.028)
[2017-07-18] MEDS ORDERED: Furosemide 40 MG/4 ML VIAL ONE (12:28)
--- NOTE | 2017-07-18 12:34 | RAD ---
FRONTAL VIEW CHEST: Date: 07/18/17 COMPARISON: 06/12/17. CLINICAL HISTORY: Edema. FINDINGS: There is enlargement of the cardiac silhouette. Elevation left hemidiaphragm is again seen. There is evidence of vascular prominence and interstitial opacification. IMPRESSION: Findings indicate CHF. Correlate clinically. POS: [facility]
== END 2017-07-18 13:35 | disposition short-term general hospital (02) ==
LOC: NAV ERS 11:02
DX: I50.9 Heart failure, unspecified (principal); N28.9 Disorder of kidney and ureter, unspecified; I25.10 Atherosclerotic heart disease of native coronary artery without angina pectoris; J44.9 Chronic obstructive pulmonary disease, unspecified; I48.91 Unspecified atrial fibrillation; M19.90 Unspecified osteoarthritis, unspecified site; M86.9 Osteomyelitis, unspecified; G89.29 Other chronic pain; M54.9 Dorsalgia, unspecified; Z87.891 Personal history of nicotine dependence; Z79.82 Long term (current) use of aspirin; Z79.899 Other long term (current) drug therapy; Z79.01 Long term (current) use of anticoagulants
CPT/HCPCS: 71045; 80053; 82553; 83735; 83880; 84100; 84484; 85025; 85610; 85730; 93005; 96374; J1940